=== PATIENT | female | born 1945 | race Caucasian/White ===

== ENCOUNTER 2019-09-13 10:55 | Outpatient (CLI) | payer MEDICARE, SELFPAY ==
--- NOTE | 2019-09-13 10:59 | ECG_ITS ---
Measurements Intervals [place] Rate: 58 P: 33 KS: 157 QRS: -13 QRSD: 74 T: 13 QT: 380 QTc: 375 Interpretive Statements SINUS BRADYCARDIA BORDERLINE R WAVE PROGRESSION, ANTERIOR LEADS BASELINE ARTIFACT- I, II, AVR, AVL BORDERLINE ECG Electronically Signed On 09-13-2019 11:16:59 FARO DEALER by Alex Gongora D.O.
== END 2019-09-13 10:56 | disposition home or self-care (01) ==
LOC: ANHSURGERY 10:58
PROVIDERS: PCP Internal Medicine; Visit Provider Plastic Surgery
DX: Z01.810 Encounter for preprocedural cardiovascular examination (principal); E78.00 Pure hypercholesterolemia, unspecified; G56.21 Lesion of ulnar nerve, right upper limb
CPT/HCPCS: 93005

== ENCOUNTER 2019-09-20 00:45 | Day surgery (SDC) | payer MEDICARE, SELFPAY ==
[2019-09-11 09:28] VITALS: BMI 31.4
--- NOTE | 2019-09-19 21:30 | HP_ITS ---
DATE OF SERVICE: 09/20/2019 DIAGNOSIS: Right cubital tunnel syndrome. HISTORY: The patient is 74. She presents with complaints in her right upper extremity. She has a history of having had right open carpal tunnel release in 2019. Her complaints were numbness and weakness in the right hand. She had done well for a good period of time after the carpal tunnel release. We sent her for a new nerve conduction test and this revealed mild right carpal tunnel syndrome and subtle evolving right ulnar neuropathy at the elbow. That latter exam was consistent with her symptoms and she is brought today for ulnar neuroplasty at the right elbow. She is aware that condition is unlikely to be helped if she does not have the surgery. The risks involved primarily involved up infection, hematoma, persistence of premorbid sensory and motor condition and anesthetic risk. She would like to proceed. She is advised that cutaneous nerve damage may cause some numbness on the proximal forearm. PAST MEDICAL HISTORY: She takes a low-dose aspirin daily, Crestor, VESIcare, calcium and vitamin D3. ALLERGIES: SHE HAS NO KNOWN ALLERGIES TO MEDICATION. PAST SURGICAL HISTORY: She has had several surgeries. REVIEW OF SYSTEMS: Indicates some hearing loss, dry eye, arthritic pain. FAMILY HISTORY: Noncontributory. SOCIAL HISTORY: She lives in [place]. She is not employed. She is a nonsmoker. PHYSICAL EXAMINATION: GENERAL: She is alert, cooperative, adult female. She is 5 feet 5 inches, weighs 162 pounds. She is in no distress. HEENT: Exam is unremarkable. CHEST: Clear to auscultation. HEART: Regular rate and rhythm by palpation. ABDOMEN: Soft, nontender. DIAGNOSIS: Right cubital tunnel syndrome. PLAN: Right ulnar neuroplasty at the elbow. This will be under MAC anesthetic. She will remain on her aspirin. D I MT: Julia
--- NOTE | 2019-09-20 07:22 | WPDHPUPDATE1 ---
History and Physical Update Update Date/Time: 09/20/19 07:22 History and Physical has been reviewed, including an updated exam of the patient. There are NO changes in the patient's condition. Risks, benefits, and alternatives have been discussed and questions answered. Patient agrees to proceed with procedure.
--- NOTE | 2019-09-20 07:23 | WPDHPUPDATE1 ---
History and Physical Update Update Date/Time: 09/20/19 07:23 History and Physical has been reviewed, including an updated exam of the patient. There are NO changes in the patient's condition. Risks, benefits, and alternatives have been discussed and questions answered. Patient agrees to proceed with procedure.
[2019-09-20] MEDS: LACTATED RINGERS 1,000 ML 30 ML IV CONT (11:00)
--- NOTE | 2019-09-20 11:38 | WPDANESEPPF ---
Anes - Initial Pre Proc Eval Procedure: Operation Date: 09/20/19 12:00 Proposed Procedures p Right Ulnar Neuroplasty at the Elbow - Sergey Fowler MD Date/Time: 09/20/19 11:38 Surgeon: Sergey Fowler MD Pre Op Diagnosis: Lesion of Right Ulnar Nerve Patient Data Age: 74 Gender: F Height: 5 ft 4.5 in Weight: 84.37 kg Allergies Allergy/AdvReac Type Severity Reaction Status Date / Time No Known Allergies Allergy Unknown Verified 09/11/19 09:24 Home Medications Medication Instructions Recorded Confirmed Type aspirin 81 mg tablet,delayed 81 mg PO DAILY 08/01/19 09/11/19 History release cholecalciferol (vitamin D3) 50 2,000 unit PO DAILY 08/01/19 09/11/19 History mcg (2,000 unit) tablet docusate sodium 100 mg tablet 100 mg PO DAILY 08/01/19 09/11/19 History vitamins A,C,Y-xmly-rmywss 14,320 1 cap PO BID 08/01/19 09/11/19 History unit-226 mg-200 unit capsule calcium carbonate-vitamin D3 1 cap PO DAILY 09/11/19 09/11/19 History [Calcium 600 + D(3)] multivitamin [Daily Multiple] 1 tablet PO DAILY 09/11/19 09/11/19 History rosuvastatin 5 mg PO HS 09/11/19 09/11/19 History solifenacin [Vesicare] 10 mg PO HS 09/11/19 09/11/19 History Patient hx anesthesia problems: none Family hx anesthesia problems: none PMFSH Past Medical History Medical History Dyslipidemia GERD with apnea ABIODUN (obstructive sleep apnea) Family History Family History (Updated 12/06/17 @ 07:49 by DOCTOR UNKNOWN) Mother Family history of dementia Father Family history of heart disease in male family member before age 55 Family history of cardiovascular disease, Onset Age: 68 Grandparent Diabetes mellitus Sibling Hypertension Patient's brother is in good health Social History Social History Smoking status: Former smoker Smoking end date: 08/15/84 Alcohol intake: current Gender identity (if verbalized by the patient): Female Anes - Eval Final PreProcedure Day of Procedure 09/20/19 11:38 Patient weight: overweight Heart: regular rate and rhythm Lungs: clear to auscultation Airway: Mallampati scale class II Neurological: alert and oriented Last oral intake: >/= 8 hours ASA classification: III Emergent: no Anesthetic plan: proceed Anesthesia type and monitoring: general GIVS and standard monitoring Informed Consent: The patient's anesthetic plan and its attendant risks and benefits were discussed with the patient/family/POA. Questions were solicited and answers provided to the satisfaction of the patient/family/POA.
--- NOTE | 2019-09-20 11:39 | SUR.PREOP ---
1055- Informed pt that Dr Fowler is running 30 mins behind
[2019-09-20] MEDS: LIDO 1%/EPINEPHRINE 1:100,000 20 ML VIAL INFILTRATE (12:50)
--- NOTE | 2019-09-20 13:05 | PM.OP ---
Procedure Note - Brief Procedure Note - Brief Date of procedure: 09/20/19 Pre-op diagnosis: Lesion of Right Ulnar Nerve Post-op diagnosis: same Procedure performed: R ulnar neuroplasty at the elbow. Anesthesia: MAC Surgeon: Sergey Fowler MD Industrial Real Estate Agent: Katerina Estimated blood loss (mL): 2 Drains: No Packing: No Pathology: none sent Complications: No immediate complications Condition: stable Disposition: PACU
[2019-09-20 13:21] VITALS: BP 112/69; PULSE 70; RESP 13; O2SAT 92
--- NOTE | 2019-09-20 13:25 | P.OP_ITS ---
Procedure Note - Detailed Date of procedure: 09/20/19 Pre-op diagnosis: Lesion of Right Ulnar Nerve Right ulnar compression neuropathy at the elbow Procedure performed: Right ulnar neuroplasty at the elbow Description of procedure: The time-out was held and confirmed. The extremity was prepped and draped in the usual fashion she was given IV sedation. The tourniquet was inflated to 250 mmHg. The elbow was flexed and supported on folded towels. The site was marked for the incision and locally infiltrated with 1% lidocaine. The incision was made as marked. Dissection was carried through the subcutaneous tissue using sharp and blunt technique. Several small vessels were cauterized. The ulnar nerve was identified just anterior to the robust triceps muscle proximal to the medial epicondyle. The nerve was followed distally unroofing any structure lying over it. Tomlinson ligament appeared to be the most constricting points. There was no compression in the distal muscle fascia. And no compression p roximally. Again small vessels were cauterized. The nerve did not sublux and was not transposed. The wound was closed with interrupted and running 3-0 Monocryl sutures. The usual bulky bandage was applied the tourniquet was released. The patient was awakened and transported to the recovery room in stable condition. She has a prescription for hydrocodone 5/325. She has instructions in wound care and follow-up Surgeon: Sergey Fowler MD
[2019-09-20 13:50] VITALS: BP 133/74; PULSE 62
[2019-09-20 14:20] VITALS: BP 130/69; PULSE 53
[2019-09-20 14:50] VITALS: BP 137/69; PULSE 58
== END 2019-09-20 14:58 | disposition home or self-care (01) ==
PROVIDERS: PCP Internal Medicine; Visit Provider Plastic Surgery
PROC: (CPT 64718; principal; 2019-09-20 12:00)
DX: G56.21 Lesion of ulnar nerve, right upper limb (principal); E78.5 Hyperlipidemia, unspecified; K21.9 Gastro-esophageal reflux disease without esophagitis; G47.33 Obstructive sleep apnea (adult) (pediatric); Z79.82 Long term (current) use of aspirin; Z87.891 Personal history of nicotine dependence
CPT/HCPCS: 64718; A9270; J2250; J2704; J3010; J7120

== ENCOUNTER 2020-08-25 09:42 | Outpatient (CLI) | payer MEDICARE, SELFPAY ==
[2020-08-25 10:28] LABS: Basophils Absolute Auto 0.1 K/mm3 (0.0-0.1); Basophils Percent Auto 0.8 % (0.2-1.2); Eosinophils Absolute Auto 0.2 K/mm3 (0-0.3); Eosinophils Percent Auto 2.9 % (0-4.4); Hematocrit 45.2 % (37.0-47.0); Hemoglobin 14.6 g/dL (12.0-15.0); Immature Granulocyte Absolute 0.03 K/mm3 (0.00-0.031); Immature Granulocyte Percent A 0.4 % (0-0.5); Lymphocytes Absolute Auto 2.21 K/mm3 (0.9-3.2); Lymphocytes Percent Auto 27.9 % (18.3-44.2); Mean Corpuscular HGB Conc 32.3 g/dl (32-36); Mean Corpuscular Hemoglobin 32.1 pg (26-34); Mean Corpuscular Volume 99.3 fl (80-100); Mean Platelet Volume 9.6 fl (7.4-10.4); Monocytes Absolute Auto 0.5 K/mm3 (0.1-0.6); Monocytes Percent Auto 6.8 % (2.6-8.5); Neutrophils Absolute Auto 4.8 K/mm3 (1.3-6.7); Neutrophils Percent Auto 61.2 % (45.5-73.1); Platelet Count Result 314 k/mm3 (150-375); Red Blood Count 4.55 M/mm3 (4.2-5.4); White Blood Count 7.9 K/mm3 (4.5-10.0)
[2020-08-25 10:35] LABS: Add Urine Microscopic? YES; Appearance Urine Cloudy (Clear); Bilirubin Urine Negative (Negative); Blood Urine Negative (Negative); Color Urine Yellow (Yellow); Glucose Urine UA Negative (Negative); Ketones Urine Negative (Negative); Leukocyte Esterase Ur 1+ LEU/UL (NEGATIVE); Mucus Urine Rare /lpf; Nitrate Urine Negative (Negative); Protein Urine Negative (Negative); Specific Grav Ur 1.012 (1.001-1.035); Squamous Epithelial Cell Urine Many /hpf (Few); Urobilinogen Urine Negative mg/dL (<2.0)
[2020-08-25 10:44] LABS: Alanine Aminotransferase 27 U/L (4-35); Albumin Level 3.9 g/dL (3.5-5.1); Alkaline Phosphatase 73 U/L (38-126); Anion Gap 4 mmol/L (8-16); Aspartate Amino Transferase 24 U/L (14-36); Bilirubin,Total 0.4 mg/dL (0.2-1.3); Blood Urea Nitrogen 11 mg/dL (7-17); Calcium 8.7 mg/dL (8.4-10.2); Carbon Dioxide 30 mmol/L (22-30); Chloride 109 mmol/L (98-107); Cholesterol 144 mg/dL (0-200); Estimated Glomerular Filt Rate > 60; Glucose 105 mg/dL (65-105); HDL Direct 34 mg/dL; Potassium 4.3 mmol/L (3.4-5.0); Sodium 143 mmol/L (137-145); Triglycerides 293 mg/dL (<150)
[2020-08-25 10:55] LABS: LDL Cholesterol Direct 67 mg/dL
[2020-08-25 11:42] LABS: Vitamin D 25 Hydroxy 30.8 ng/mL
== END 2020-08-25 09:43 | disposition home or self-care (01) ==
PROVIDERS: PCP Internal Medicine; Visit Provider Internal Medicine
DX: E55.9 Vitamin D deficiency, unspecified (principal); E78.2 Mixed hyperlipidemia; R73.01 Impaired fasting glucose; Z79.899 Other long term (current) drug therapy
CPT/HCPCS: 36415; 80053; 80061; 81001; 82306; 84443; 85025

== ENCOUNTER 2020-09-16 07:50 | Outpatient (CLI) | payer MEDICARE, SELFPAY ==
--- NOTE | ~2020-09-16 | MM_ITS ---
EXAMINATION: MM screening [facility] BI w emelia HISTORY: Screening mammogram TECHNIQUE: Craniocaudal and mediolateral oblique 3-D tomosynthesis images were obtained and synthetic 2-D images were generated. CAD analysis was submitted and interpreted. COMPARISON: 09/05/2019, 10/04/2017, 10/06/2016, 10/03/2015 BREAST PARENCHYMAL COMPOSITION: There are scattered areas of fibroglandular density. FINDINGS: There is no evidence of suspicious mass, calcification, or architectural distortion to sugg est malignancy in either breast. There has been no suspicious interval change. IMPRESSION: 1. No mammographic evidence of malignancy. 2. Recommend routine screening mammography in one year. BI-RADS Category 1: Negative Reviewed, dictated and finalized at location A. SCALA DEVELOPER
== END 2020-09-16 07:51 | disposition home or self-care (01) ==
LOC: ANHIMG 07:54
PROVIDERS: PCP Internal Medicine; Visit Provider Internal Medicine
DX: Z12.31 Encounter for screening mammogram for malignant neoplasm of breast (principal)
CPT/HCPCS: 77063; 77067

== ENCOUNTER 2021-09-04 07:33 | Outpatient (CLI) | payer MEDICARE, SELFPAY ==
[2021-09-04 08:42] LABS: Basophils Absolute Auto 0.1 K/mm3 (0.0-0.1); Basophils Percent Auto 0.8 % (0.2-1.2); Eosinophils Absolute Auto 0.3 K/mm3 (0-0.3); Hemoglobin 14.7 g/dL (12.0-15.0); Immature Granulocyte Absolute 0.04 K/mm3 (0.00-0.031); Immature Granulocyte Percent A 0.5 % (0-0.5); Lymphocytes Absolute Auto 2.87 K/mm3 (0.9-3.2); Lymphocytes Percent Auto 34.5 % (18.3-44.2); Mean Corpuscular HGB Conc 32.7 g/dl (32-36); Mean Corpuscular Hemoglobin 32.5 pg (26-34); Mean Corpuscular Volume 99.3 fl (80-100); Mean Platelet Volume 9.8 fl (7.4-10.4); Monocytes Absolute Auto 0.8 K/mm3 (0.1-0.6); Monocytes Percent Auto 9.5 % (2.6-8.5); Neutrophils Absolute Auto 4.2 K/mm3 (1.3-6.7); Neutrophils Percent Auto 50.7 % (45.5-73.1); Platelet Count Result 309 k/mm3 (150-375); Red Blood Count 4.53 M/mm3 (4.2-5.4); Red Cell Distribution Width 14.1 % (11.5-14.5); White Blood Count 8.3 K/mm3 (4.5-10.0)
[2021-09-04 08:56] LABS: Alanine Aminotransferase 27 U/L (4-35); Albumin Level 4.2 g/dL (3.5-5.1); Alkaline Phosphatase 91 U/L (38-126); Anion Gap 9 mmol/L (8-16); Aspartate Amino Transferase 27 U/L (14-36); Bilirubin,Total 0.4 mg/dL (0.2-1.3); Blood Urea Nitrogen 20 mg/dL (7-17); Calcium 9.3 mg/dL (8.4-10.2); Carbon Dioxide 29 mmol/L (22-30); Chloride 104 mmol/L (98-107); Cholesterol 149 mg/dL (0-200); Estimated Glomerular Filt Rate > 60; Glucose 115 mg/dL (65-110); HDL Direct 38 mg/dL; Sodium 142 mmol/L (137-145); Triglycerides 217 mg/dL (<150)
[2021-09-04 09:02] LABS: Creatinine Urine 148.2 mg/dL
[2021-09-04 09:06] LABS: MALB Creatinine Ratio 7.7 mg/g (0-30); Microalbumin Urine Random 11.4 mg/L (0-16.7)
[2021-09-04 09:07] LABS: LDL Cholesterol Direct 71 mg/dL
[2021-09-04 09:30] LABS: Vitamin D 25 Hydroxy 34.8 ng/mL
== END 2021-09-04 07:34 | disposition home or self-care (01) ==
PROVIDERS: PCP Internal Medicine; Visit Provider Internal Medicine
DX: E55.9 Vitamin D deficiency, unspecified (principal); E78.2 Mixed hyperlipidemia; R73.01 Impaired fasting glucose; Z78.0 Asymptomatic menopausal state; Z79.899 Other long term (current) drug therapy
CPT/HCPCS: 36415; 80053; 80061; 82043; 82306; 83036; 84443; 85025

== ENCOUNTER 2021-09-24 15:50 | Outpatient (CLI) | payer MEDICARE, SELFPAY ==
--- NOTE | ~2021-09-24 | MM_ITS ---
EXAMINATION: MM screening [facility] BI w emelia HISTORY: Screening mammogram TECHNIQUE: Craniocaudal and mediolateral oblique 3-D tomosynthesis images were obtained and synthetic 2-D images were generated. CAD analysis was submitted and interpreted. COMPARISON: 09/16/2020, 09/05/2019, 09/17/2017 BREAST PARENCHYMAL COMPOSITION: There are scattered areas of fibroglandular density. FINDINGS: There is no evidence of suspicious mass, calcification, or architectural distortion to sugg est malignancy in either breast. There has been no suspicious interval change. IMPRESSION: 1. No mammographic evidence of malignancy. 2. Recommend routine screening mammography in one year. BI-RADS Category 1: Negative Reviewed, dictated and finalized at location A. GENCY MAN
== END 2021-09-24 15:51 | disposition home or self-care (01) ==
LOC: ANHIMG 15:51
PROVIDERS: PCP Internal Medicine; Visit Provider Internal Medicine
DX: Z12.31 Encounter for screening mammogram for malignant neoplasm of breast (principal)
CPT/HCPCS: 77063; 77067

== ENCOUNTER 2021-11-25 14:41 | Outpatient (CLI) | payer MEDICARE, SELFPAY ==
--- NOTE | ~2021-11-25 | DEXA_ITS ---
Bone Density Report Name: JOSHUA NEWBERRY Age: 76 Sex: Female Ethnicity: White Date of : 1945 Indication: postmenopausal; screening for osteoporosis; height loss; Referring Provider: BROCK SERRATO Study: Bone densitometry was performed. Exam Date: November 25, 2021 Accession number: [id number] Bone Density: Region BMD T-score Z-score Classification AP Spine(L1-L4) 1.045 0.0 2.3 Normal Femoral Neck (Left) 0.723 -1.1 0.9 Osteopenia Total Hip (Left) 0.942 0.0 1.7 Normal World Health Organization criteria for BMD impression classify patients as: Normal (T-score at or above -1.0), Osteopenia (T-score between -1.0 and -2.5), or Osteoporosis (T-score at or below -2.5). 10-year Fracture Risk(1): Major Osteoporotic Fracture 8.9% Hip Fracture 1.3% Reported Risk Factors: [place] (), Neck BMD=0.723, BMI=38.0 (1) FRAX(R) Version 3.08. Fracture probability calculated for an untreated patient. Fracture probability may be lower if the patient has received treatment. Previous Exams: Region Exam Age BMD T-score BMD Change BMD Change Date g/cm2 vs Baseline vs Previous AP Spine(L1-L4) 11/25/2021 76 1.045 0.0 0.028(2.7%)* 0.028(2.7%)* 09/24/2014 69 1.017 -0.3 Total Hip(Left) 11/25/2021 76 0.942 0.0 -0.060(-6.0%)* -0.018(-1.9%) 02/06/2019 73 0.960 0.1 -0.042(-4.2%)* -0.042(-4.2%)* 09/24/2014 69 1.002 0.5 *Denotes significance at 95% confidence level, LSC for AP Spine = 0.022 g/cm2, LSC for Total Hip = 0.027 g/cm2 Clinical Information Provided by Patient: Has used the following medications: Vitamin D, Calcium Patient maximum height was 67 Menopause Age: 58 No regular weight bearing exercise Does not regularly consume dairy products Drinks caffeinated beverages Onset of menses at age 14 Number of children 1 Impression: The patient has low bone mass, based on the Left Femoral Neck T-score. The patient has an estimated ten-year risk of hip fracture of 1.3% and an estimated ten-year risk of major fracture of 8.9%, based on the WHO FRAX algorithm. No significant bone loss was observed. Discussion: BONE DENSITY IS LOW AT ONE OR MORE SKELETAL SITES. This patient's lowest T-score is low at one or more skeletal sites. It meets the World Health Organization's (WHO) criteria for ?low bone mass? (T-score between -1.0 and -2.5). The patient's 10-year risk of fracture as calculated by FRAX is less than the threshold where pharmacological therapy is recommended by the National Osteoporosis Fou
== END 2021-11-25 14:42 | disposition home or self-care (01) ==
LOC: ANHIMG 14:43
PROVIDERS: PCP Internal Medicine; Visit Provider Internal Medicine
DX: Z78.0 Asymptomatic menopausal state (principal); M85.852 Other specified disorders of bone density and structure, left thigh
CPT/HCPCS: 77080

== ENCOUNTER → 2021-12-02 09:23 | Outpatient (CLI) | payer MEDICARE, SELFPAY ==
--- NOTE | ~2021-12-02 | MR_ITS ---
EXAMINATION: MR shoulder RT wo con DATE: 12/02/2021 10:18 INDICATION: Right shoulder pain TECHNIQUE: Magnetic resonance imaging (MRI) of the right shoulder was performed without intravenous c ontrast. Sequences included axial PD-weighted FS FSE, coronal oblique PD-weighted FS FSE, coronal obl ique T2-weighted FS FSE, sagittal PD-weighted FS FSE, and sagittal T1-weighted SE. COMPARISON: Right shoulder radiographs dated 10/29/2021 FINDINGS: Coracoacromial arch: The acromion undersurface is curved in morphology (type II). The coracoacromial ligament is normal. M ild acromioclavicular osteoarthritis. Rotator cuff: Severe supraspinatus and mild infraspinatus tendinopathy without discrete tear. The teres minor and s ubscapularis tendons are normal. Normal rotator cuff muscle bulk and signal. Biceps tendon, glenoid labrum and glenohumeral cartilage: Long head of the biceps tendon is normal. There is a SLAP tear of the superior glenoid labrum which b egins posteriorly at the 9:00 position and extends anteriorly to the 2:00 position. Partial-thickness cartilage loss along the cephalad half of the glenoid with smooth chondral surface and without degen erative subchondral changes. Additional partial thickness cartilage loss at the posterior superior as pect of the humeral head. Fluid: Small amount of fluid in the long head biceps tendon sheath disproportionate to the physiologic amoun t of fluid in the glenohumeral joint consistent with mild bicipital tenosynovitis. No loose osteochon dral bodies. Large amount of fluid in the subacromial/subdeltoid bursa consistent with bursitis. Bones: Normal marrow signal with no fracture or pathologic marrow replacing process. Mild cystic change at t he greater tuberosity. IMPRESSION: 1. Severe supraspinatus and mild infraspinatus tendinopathy without discrete tear. 2. Mild glenohumeral osteoarthritis with SLAP tear of the superior glenoid labrum. 3. Moderate subacromial/subdeltoid bursitis. Reviewed, dictated and finalized at location A. IMPRESSION: 1. Severe supraspinatus and mild infraspinatus tendinopathy without discrete te ar. 2. Mild glenohumeral osteoarthritis with SLAP tear of the superior glenoid labr um. 3. Moderate subacromial/subdeltoid bursitis.
== END ==
PROVIDERS: PCP Internal Medicine; Visit Provider Orthopaedic Surgery
DX: M19.011 Primary osteoarthritis, right shoulder (principal); M75.51 Bursitis of right shoulder
CPT/HCPCS: 73221

== ENCOUNTER 2022-01-12 09:21 | Outpatient (CLI) | payer MEDICARE, SELFPAY ==
--- NOTE | 2022-01-12 09:37 | ECG_ITS ---
Measurements Intervals [place] Rate: 84 P: 47 [place]: 151 QRS: 6 QRSD: 76 T: 27 QT: 364 QTc: 431 Interpretive Statements SINUS RHYTHM BASELINE ARTIFACT- AVF NORMAL ECG Electronically Signed On 01-12-2022 14:11:25 CDT by Alex Gongora D.O.
== END 2022-01-12 09:22 | disposition home or self-care (01) ==
PROVIDERS: PCP Internal Medicine; Visit Provider Orthopaedic Surgery
DX: E78.00 Pure hypercholesterolemia, unspecified (principal); Z01.818 Encounter for other preprocedural examination
CPT/HCPCS: 93005

== ENCOUNTER 2022-01-15 07:46 | Outpatient (CLI) | payer MEDICARE, SELFPAY ==
--- NOTE | 2022-02-08 17:06 | WPDSLEEPSTUD ---
Sleep Study Date of Study: 01/15/22 Ordering Provider: Milton Chan APRN Interpreting Physician: Alma Patrick MD Sleep Study Type: Polysomnogram Height: 1.65 m Weight: 104.326 kg Body Mass Index: 38.2 Neck Circumference (inches): 15.4 [place]: 15 Reason for Sleep Study Hypersomnolence Sleep History Enriqueta Rosa is a 76-year-old female who frequently wakes at night with difficulty returning to sleep. She has been treated for sleep apnea since 2013 using CPAP until the recall. She became uncertain if she should continue using her machine or stop using her machine. This is the original machine that she was treated with so it is over 5 years old. She falls asleep easily while reading or watching TV. She occasionally awakens from sleep feeling short of breath, occasionally awakens at night with heartburn, belching or coughing. She frequently snores and this is frequently loud enough that other people complain about it. She occasionally has trouble sleeping with a cold. She does not wake up gasping for breath during the night. She occasionally has breathing problems at night. She rarely sweats excessively at night and rarely notices her heart pounding or beating irregularly at night. She frequently falls asleep during the day, frequently falls asleep involuntarily however never falls asleep while driving. She does not have loss of muscle tone with strong emotion. She does not have daytime difficulties due to excessive sleepiness. She is retired. She does not feel paralyzed on waking or falling asleep. She does not have vivid dreamlike scenes upon awakening or falling asleep. She does not feel afraid to go to sleep. She denies having nightmares. She occasionally remembers her dreams. She occasionally has racing thoughts. She does not feel sad, depressed or anxious. She does not have muscular tension. She rarely notices parts of her body jerking and she rarely kicks at night. She occasionally has crawling and aching feelings in her legs. She occasionally has leg pain at night. She does not have morning jaw pain. She does not grind her teeth during sleep. She does not have pain during the day or is awakened by pain during the night. She occasionally wakes up feeling stiff in the morning with sore achy muscles and pain in the neck and spine. She has fatigue. Normal bedtime is between 11:30 p.m. and 12 midnight, falling asleep within 30-40 minutes, waking 1-2 times during the night to go to the bathroom or get a drink of water. She is able to return to sleep within 5-10 minutes. She wakes up between 8:00 a.m. and 8:30 a.m.. She estimates getting 5-6 hours of sleep at night. Her weekend schedule is the same. She takes naps in the afternoon or evening. A short nap is not refreshing. She awakens feeling refreshed only occasionally. She reports a 30 lb weight gain in the last year Habits: Stop tobacco 37 years ago. Caffeine 2 servings a day. No alcohol or recreational drugs. [facility] Past Medical History Medical History Arthritis Dyslipidemia Gastroesophageal reflux disease Hypertension Obstructive sleep apnea Urge incontinence Surgical History Surgical History History of arthroplasty of right shoulder History of carpal tunnel release History of tonsillectomy History of total right hip arthroplasty Family History Family History Mother Family history of dementia Father Family history of heart disease in male family member before age 55 Family history of cardiovascular disease, Onset Age: 68 Grandparent Diabetes mellitus Sibling Hypertension Patient's brother is in good health Social History Social History Social History: Surrogate decision maker: Laurasandy Joyner, daughter. Code
[2022-02-09 19:21] VITALS: BMI 38.2
== END 2022-01-16 06:56 | disposition home or self-care (01) ==
LOC: ANHCSM 07:47
PROVIDERS: PCP Internal Medicine; Visit Provider Nurse Practitioner Family
DX: G47.33 Obstructive sleep apnea (adult) (pediatric) (principal)
CPT/HCPCS: 95810

== ENCOUNTER 2022-01-20 18:35 | Observation (INO) | payer MEDICARE, SELFPAY ==
[2022-01-06 13:44] VITALS: BMI 38.3
--- NOTE | 2022-01-06 13:55 | PC.NURSE ---
Report to the Outpatient Waiting Room, entrance under the green pavilion located off [facility], at time _1130 AM_ on date _01/19/22_. OR Time: _1:30 PM_. - You and your visitor will be asked a series of questions to screen for COVID 19 for your protection. - Only one visitor is allowed at this time. - The patient visitor is requested to leave or wait in car when not with patient. - A mask is required within the hospital. Patients may have clear liquids (water, carbonated beverages, clear teas, apple juice) until 3 hours prior to surgery (1030 AM) with a maximum of 20 ounces. - No food from midnight until time of surgery Take the following medications with a SIP of water the morning of surgery: _NONE_ Medications to discontinue per DR. CLINTON - ASPIRIN 7 DAYS PRIOR TO SURGERY, Date to take last dose 01/11/22__ Medications to discontinue per ANESTHESIA - ALL VITAMINS/SUPPLEMENTS 3 DAYS PRIOR TO SURGERY, Date to take last dose 01/15/22_ Please no make-up, nail albanian, hairspray, perfume, deodorant, or body powder the day of surgery. No jewelry (including any body piercings) or valuables the day of surgery, leave them at home. Please take a shower or bath the night before, or the morning of, surgery with an antibacterial soap. Wear comfortable, loose fitting clothing. - Jewelry must be removed prior to entering the operating room. Rings and piercings that are not removed may be cut off. - The hospital will not accept responsibility for valuables. - Please leave all valuables, including medications, at home the day of surgery. If you are going home after surgery, a licensed compactor driver must drive you home. - NO public transportation without another adult. - We recommend that an adult stay with you for 24 hours following discharge. - We also recommend that you do not drive, make important decision, drink alcoholic beverages, or take any drugs that were not prescribed by your health care provider for at least 24 hours after your discharge time. Follow any additional instructions given to you from your surgeon. If you or anyone in your household have experienced Covid symptoms in the past week, please notify your surgeon or the nurse liaison at the phone number below for possible testing. Telephone instructions given to ____PT and asked if any additional questions and then verbalized understanding. Patient advised to call surgeon office or pre surgery nurse liaison [phone] if any additional questions.
[2022-01-19] VITALS (24 sets, daily range): BP systolic 125–181; BP diastolic 58–84; PULSE 68–92; RESP 14–22; TEMP 36.1–36.3; O2SAT 77–98; BMI 37.3
--- NOTE | 2022-01-19 07:18 | WPDHPUPDATE1 ---
History and Physical Update Update Date/Time: 01/19/22 07:18 History and Physical has been reviewed, including an updated exam of the patient. There are NO changes in the patient's condition. Risks, benefits, and alternatives have been discussed and questions answered. Patient agrees to proceed with procedure.
--- NOTE | 2022-01-19 11:45 | WPDANESEPPF ---
Anes - Initial Pre Proc Eval Procedure: Operation Date: 01/19/22 13:30 Proposed Procedures p Right Shoulder Arthroscopic Subacromial Decompression, Bicep Tenotomy - Virgilio Jacobson MD Date/Time: 01/19/22 11:45 Surgeon: Virgilio Jacobson MD Pre Op Diagnosis: right shoulder tendonitis, SLAP tear Patient Data Age: 76 Gender: F Height: 1.65 m Weight: 104.54 kg Allergies Allergy/AdvReac Type Severity Reaction Status Date / Time No Known Allergies Allergy Unknown Verified 01/19/22 11:40 Home Medications Medication Instructions Recorded Confirmed Type aspirin 81 mg tablet,delayed 81 mg PO HS 08/01/19 01/19/22 History release (Adult Low Dose Aspirin) cholecalciferol (vitamin D3) 50 2,000 unit PO QAM 08/01/19 01/19/22 History mcg (2,000 unit) tablet docusate sodium 100 mg tablet 100 mg PO DAILY PRN Constipation 08/01/19 01/19/22 History (Stool Softener) vitamins A,C,J-krpm-kxpnvh 14,320 1 cap PO BID 08/01/19 01/19/22 History unit-226 mg-200 unit capsule (PreserVision AREDS) calcium carbonate 600 mg-vitamin 1 cap PO QAM 09/11/19 01/19/22 History D3 5 mcg (200 unit) capsule (Calcium 600 + D(3)) multivitamin (Daily Multiple 1 tablet PO HS 09/11/19 01/19/22 History tablet) cetirizine 10 mg tablet (Zyrtec) 10 mg PO DAILY PRN Congestion 01/06/22 01/19/22 History rosuvastatin 10 mg tablet 10 mg PO HS 01/06/22 01/19/22 History solifenacin 10 mg tablet (Vesicare) 10 mg HS 01/06/22 01/19/22 History Patient hx anesthesia problems: none Family hx anesthesia problems: none Results Review: All pre-operative results and documents have been reviewed as part of the pre-operative evaluation. [facility] Past Medical History Medical History (Updated 01/19/22 @ 11:46 by Rex Hamilton MD) Dyslipidemia GERD with apnea Obesity (BMI 35.0-39.9 without comorbidity) ABIODUN (obstructive sleep apnea) Sinus congestion Family History Family History Mother Family history of dementia Father Family history of heart disease in male family member before age 55 Family history of cardiovascular disease, Onset Age: 68 Grandparent Diabetes mellitus Sibling Hypertension Patient's brother is in good health Social History Social History Smoking packs per day: 2 Smoking cigarettes per day: 40.0 Years smoked: 20 Smoking pack-years: 40.00 Smoking status: Former smoker Tobacco type: cigarettes Second hand tobacco smoke exposure: No Smoking end date: 08/15/84 Alcohol intake: current Drinks per week: 1 Alcohol use details: social Substance use: never Substance use type: does not use Living arrangements: alone Gender identity (if verbalized by the patient): Female Spiritual care concerns: No Anes - Eval Final PreProcedure Day of Procedure 01/19/22 11:45 Patient weight: obese Heart: regular rate and rhythm Lungs: clear to auscultation Airway: Mallampati scale class II Neurological: alert and oriented Last oral intake: >/= 8 hours ASA classification: III Emergent: no Anesthetic plan: proceed Anesthesia type and monitoring: general ETT and standard monitoring Results Review: All pre-operative results and documents have been reviewed as part of the pre-operative evaluation. Informed Consent: The patient's anesthetic plan and its attendant risks and benefits were discussed with the patient/family/POA. Questions were solicited and answers provided to the satisfaction of the patient/family/POA.
[2022-01-19] MEDS: ACETAMINOPHEN 500 MG TABLET 1000 MG PO (11:47)
[2022-01-19] MEDS: LACTATED RINGERS 1,000 ML 30 ML IV CONT ×2 (12:21→15:03)
--- NOTE | 2022-01-19 12:26 | WPDANESPNB ---
Anes - Peripheral Nerve Block Date/Time: 01/19/22 12:26 I have discussed with the patient/family/POA the placement of a peripheral nerve block for post-operative pain management, including associated risks, benefits, complications, and side effects. Alternative methods of post-operative analgesia were detailed. Questions were solicited and answers provided to the satisfaction of the patient/family/POA. Time-Out: A pre-procedural Time-Out was completed immediately before starting the procedure and confirmed: Patient Identification, Site, Procedure, Patient Position and the Availability of Requisite Equipment. Clinical Indications: Acute post-operative pain management requested by the operative surgeon. Nerve Block Insertion Note Anes-nerve block: supraclavicular right Patient position: supine Skin prep: chlorhexidine Needle: 22 gauge, stimulating, insulated echogenic needle. Needle length: 80 mm Technique: ultrasound (in plane) Injectate: bupivacaine 0.5% with epi 5 mcg/ml (20cc) Observations: tolerated well Complications: none Procedure start time:: 1300 Procedure end time:: 1305
[2022-01-19] MEDS: KETOROLAC 15 MG/ML VIAL (*BKC) IV PUSH (12:34)
[2022-01-19] MEDS: ceFAZolin 2 GM/D5W 50 ML 2 GM/50 ML BAG IVPB (13:31)
--- NOTE | 2022-01-19 15:23 | SUR.PHASEI ---
1503- Patient s/p block with increased work of breathing upon arrival to recovery room with simple face mask in place 8 liters of oxygen and maintaining saturations in 90's. 1523- Patient awake and continues having increased work of breathing. Lung sounds auscultated and expiratory wheezing noted. Call to Dr. Hamilton to make him aware and received orders for albuterol treatment. Dr. Hamilton to bedside and notified patient that breathing will improve s/p block. Per Dr. Hamilton continue monitoring patient and place orders for albuterol treatment. Will call respiratory therapist for albuterol treatment.
[2022-01-19] MEDS: ALBUTEROL SULFATE NEB 2.5 MG/3 ML INH INHALATION (15:38)
[2022-01-19] MEDS: fentaNYL CITRATE INJ (*CRX) 100 MCG/2 ML VIAL 25 MCG IV PUSH ×2 (15:43→16:13)
--- NOTE | 2022-01-19 17:41 | W.PM.PROC2 ---
Procedure Note - Detailed Date of Procedure 01/19/22 Pre-op Diagnosis Right shoulder tendonitis, SLAP tear Post-op Diagnosis Other (1. Right shoulder rotator cuff tendonitis 2. Subacromial impingement 3. Biceps tendinosis 4. Degenerative SLAP tear 5. Degenerative arthritis ) Procedure Performed Right shoulder 1. Arthroscopic labral debridement with chondroplasty and biceps tenotomy 2. Arthroscopic subacromial decompression Surgeon Virgilio Jacobson MD Industrial Relations Manager Juanita Arambula PA-C Anesthesia General and Regional ( interscalene block) Findings Moderate degenerative arthritis and degenerative superior labral tear. Minimal low-grade supraspinatus degenerative fraying. Evidence of subacromial impingement. Significant bursitis. Description of Procedure Preoperative antibiotics were given. An interscalene block was administered in the preoperative area. The patient was bought brought to the operating room. A general anesthetic was administered. The patient was carefully positioned in the beach chair position. The head and neck were carefully positioned. The non operative extremity was also carefully positioned. The shoulder was prepped and draped in the usual sterile fashion. Examination was performed. Standard posterior and anterior arthroscopic portals were established. Inflow achieved with the arthroscopic pump using saline and epinephrine. The glenohumeral joint was carefully inspected. The degenerative changes were quite significant on both the humerus and glenoid side. Not quite to exposed bone. Mild synovitis. No contracture. Significant superior labral degeneration present. This was debrided, and the biceps was released. The subscapularis appeared normal. The articular cuff show only very low-grade fraying. Attention was turned to the subacromial space. The bursa was quite thickened. There were some thick bursal bands that appeared scarred. There was evidence of subacromial impingement. Slight spurring at the anterior acromion. Cuff itself had a small frayed area but very low-grade tearing overall. A complete bursectomy was performed. The rotator cuff and footprint were lightly debrided. Only low grade partial tearing noted. A modest acromioplasty was performed. The arthroscopic instruments were removed. The wounds were closed with 3-0 Monocryl subcuticular suture and steri strips. There were no complications. A sling was applied and the patient brought to the recovery room. Physician video production assistant, Juanita Arambula PA-C, required for surgery; including patient positioning, draping, arthroscopic camera operation, maintaining instrument position, wound closure, and dressing and sling placement. Pathology None sent Complications No immediate complications Condition Stable Disposition PACU [facility] Billing Surgery - Charge Forward: Surgery Billing
--- NOTE | 2022-01-19 18:34 | SUR.PHASEII ---
1814 - ambulated to bathroom with min. assist. remains on room air. using incentive spirometer.family member in room.
--- NOTE | 2022-01-19 19:41 | SUR.PHASEII ---
193 - pt to be admitted after speaking with Dr Jacobson by phone. placed pt back on O2 @2L.
--- NOTE | 2022-01-19 20:47 | ADMGEN ---
2030 This patient, Saba Rosa, was admitted to 3 [facility] Surg Room 300-01. Patient/family oriented to hospital policies and general routines including ID bracelet, bed and alarms, visiting hours, pain management, procedures, bathroom and other care routines, personal items, smoking policy, room service/diet, and visiting hours. Information on how to activate the Rapid Response Team has been discussed. Patient/Family are encouraged to report perceived risks to care and to ask questions if they do not understand what they are told or what they should do.
[2022-01-19] MEDS: SOLIFENACIN 5 MG TABLET 10 MG PO (22:10)
[2022-01-19] MEDS: ASPIRIN 81 MG ENTERIC TABLET PO (22:10)
[2022-01-19] MEDS: ROSUVASTATIN 10 MG TABLET PO (22:10)
[2022-01-19] MEDS: MULTIVITAMINS THERAPEUTIC TAB (*BKC) 1 TABLET PO (22:10)
[2022-01-20] VITALS (9 sets, daily range): BP systolic 109–179; BP diastolic 54–91; PULSE 77–85; RESP 16–20; TEMP 36.4–36.6; O2SAT 93–98
--- NOTE | ~2022-01-20 | XR_ITS ---
EXAM: XR abdomen/kub 1V DATE: 01/20/2022 19:11 HISTORY: nausea, abdominal distention . COMPARISON: None available. FINDINGS: Lung bases mostly excluded from the [id number]. Multiple loops of dilated small bowel i n the upper mid and left abdomen. No organomegaly. No abnormal abdominal calcification. Severe degene rative changes in the lumbar spine. Right hip arthroplasty. IMPRESSION: Small bowel ileus versus early/partial obstruction. Reviewed, dictated and finalized at location K.
--- NOTE | ~2022-01-20 | XR_ITS ---
XR chest 2V 01/21/2022 13:51 Indication: Cough and hypoxia. Procedure: 2 view chest Comparison: 01/20/2022 and 08/29/2013 Findings: Chronic elevation of the right diaphragm there is right perihilar airspace consolidation. T here is bibasilar airspace disease. No pleural effusion or pneumothorax. Cardiomegaly. No pneumothora x. Impression: 1: Bilateral airspace disease of the lung bases and right perihilar locations which may represent ate lectasis and/or pneumonia. 2: Chronic elevation of the right diaphragm suggesting phrenic nerve paralysis. Reviewed, dictated and finalized at location B. Impression: 1: Bilateral airspace disease of the lung bases and right perihilar locations w hich may represent atelectasis and/or pneumonia. 2: Chronic elevation of the right diaphragm suggesting phrenic nerve paralysis.
--- NOTE | ~2022-01-20 | XR_ITS ---
XR chest 2V 01/20/2022 10:59 Indication: Shortness of breath Procedure: AP and lateral views of the chest Comparison: 08/29/2013 Findings: Cardiomegaly. Elevation of the right diaphragm, suspicious for phrenic nerve paralysis. The re is right basilar atelectasis. Small effusion in the fissure. Impression: 1: Right basilar atelectasis with small right effusion. 2: Cardiomegaly. 3: Elevation of the right diaphragm. Reviewed, dictated and finalized at location B. Impression: 1: Right basilar atelectasis with small right effusion. 2: Cardiomegaly. 3: Elevation of the right diaphragm.
--- NOTE | ~2022-01-20 | XR_ITS ---
EXAMINATION: XR abdomen obstructive series DATE: 01/21/2022 09:54 INDICATION: Ileus. 2 days postop. TECHNIQUE: Supine and upright views of the abdomen. FINDINGS: 01/20/2022 The visualized lung parenchyma is normal.. There is decreased small bowel dilation in the left abdome n.. Gas and stool are seen throughout the colon to the level of the rectum. There is no free air. Th ere is a right hip arthroplasty. Severe lumbar spondylosis with levoscoliosis. IMPRESSION: 1. Improving postoperative ileus. Reviewed, dictated and finalized at location B.
[2022-01-20] MEDS: CHOLECALCIFEROL 1,000 UNITS TABLET 2000 UNITS PO (08:53)
[2022-01-20] MEDS: LORATADINE 10 MG TABLET PO (08:53)
[2022-01-20] MEDS: SENNA/DOCUSATE SODIUM TABLET 2 TAB PO ×2 (08:53→17:31)
[2022-01-20] MEDS: polyethylene glycoL 3350 17 GM POWD.PACK PO (08:53)
[2022-01-20] MEDS: OPTI-GEN TAB 1 TABLET PO ×2 (08:54→17:31)
--- NOTE | 2022-01-20 09:37 | PM.PNORT ---
Progress Note: A&P Assessment and Plan (1) Low O2 saturation: Code(s): R79.81 - Abnormal blood-gas level Status: Acute (2) Status post arthroscopy of right shoulder: Code(s): Z98.890 - Other specified postprocedural states Status: Acute Plan Patient had low oxygen stats after surgery. Likely from block. She was admitted last night. She is on 2L O2 at this time. She denies CP, SOB, or pain. Block is starting to wear off. She is able to move her fingers. Notes numbness in the first 3 fingers. Will consult hospitalist. Subjective Subjective Date/Time Seen: 01/20/22 09:37 Interval history: Patient had low oxygen stats after surgery. Likely from block. She was admitted last night. She is on 2L O2 at this time. She denies CP, SOB, or pain. Review of Systems Review of Systems: All systems reviewed & are unremarkable except as noted in HPI and below Exam Narrative: Obese 76 y/o female. No acute distress. 2L nasal canula. Dressing dry and intact. Wearing sling. Distal light touch sensation intact. Distal pulses palpable. Able to wiggle fingers. Objective Data Vital Signs Vital Signs: Vital Signs - 24 hr 01/19/22 11:54 01/19/22 15:03 01/19/22 15:10 Temperature 97.4 F L 96.9 F L Pulse Rate 89 85 87 Respiratory Rate 16 22 H 20 Blood Pressure 144/79 H 169/75 H 181/73 H Pulse Oximetry 98 90 94 Oxygen Delivery Room Air Simple Face Mask Simple Face Mask Oxygen Flow Rate 8 8 01/19/22 15:15 01/19/22 15:25 01/19/22 15:35 Temperature Pulse Rate 86 80 75 Respiratory Rate 20 22 H 18 Blood Pressure 168/84 H 142/58 H 146/73 H Pulse Oximetry 94 95 95 Oxygen Delivery Simple Face Mask Simple Face Mask Simple Face Mask Oxygen Flow Rate 8 8 8 01/19/22 15:45 01/19/22 15:55 01/19/22 16:10 Temperature Pulse Rate 72 74 75 Respiratory Rate 16 16 14 Blood Pressure 129/67 128/74 125/77 Pulse Oximetry 95 95 94 Oxygen Delivery Simple Face Mask Simple Face Mask Nasal Cannula Oxygen Flow Rate 8 8 2 01/19/22 16:20 01/19/22 15:30 01/19/22 15:40 Temperature Pulse Rate 75 78 74 Respiratory Rate 18 18 22 H Blood Pressure 139/81 Pulse Oximetry 93 Oxygen Delivery Nasal Cannula Oxygen Flow Rate 2 01/19/22 16:28 01/19/22 16:55 01/19/22 17:25 Temperature Pulse Rate 78 68 72 Respiratory Rate 16 18 18 Blood Pressure 151/75 H 137/71 136/69 Pulse Oximetry 77 L 90 90 Oxygen Delivery Nasal Cannula Nasal Cannula Room Air Oxygen Flow Rate 2 2 01/19/22 17:55 01/19/22 18:25 01/19/22 18:55 Temperature Pulse Rate 76 75 78 Respiratory Rate 20 20 20 Blood Pressure 141/80 H 150/70 H 156/73 H Pulse Oximetry 91 93 93 Oxygen Delivery Room Air Room Air Room Air Oxygen Flow Rate 01/19/22 19:20 01/19/22 19:50 01/19/22 20:34 Temperature 97.0 F L Pulse Rate 88 78 87 Respiratory Rate 19 17 18 Blood Pressure 145/70 H 152/84 H 143/76 H Pulse Oximetry 94 95 98 Oxygen Delivery Room Air Nasal Cannula Oxygen Flow Rate 2 01/19/22 21:44 01/19/22 21:45 01/19/22 23:48 Temperature 96.9 F L Pulse Rate 90 92 84 Respiratory Rate 18 17 18 Blood Pressure 132/75 Pulse Oximetry 94 95 97 Oxygen Delivery Nasal Cannula Autopap Oxygen Flow Rate 1 01/20/22 05:00 01/20/22 08:00 Temperature 97.6 F 97.8 F Pulse Rate 80 85 Respiratory Rate 18 18 Blood Pressure 109/54 L 117/68 Pulse Oximetry 95 93 Oxygen Delivery Oxygen Flow Rate Intake/Output Intake/Output: Intake & Output 01/17/22 01/18/22 01/19/22 01/20/22 23:59 23:59 23:59 23:59 Intake Total 650 300 Output Total 300 Balance 650 0 Meds/Results Medications: Active Medications Generic Name Dose Route Start Last Admin Trade Name Freq PRN Reason Stop Dose Admin Aspirin 81 mg 01/19/22 21:00 01/19/22 22:10 Aspirin 81 Mg Enteric Tablet PO 81 mg HS [facility] Administration Calcium Carbonate 500 mg 01/20/22 09:00 01/20/22 08:54 Calcium/Vitamin D 500 Mg Tablet PO 500 mg QA
[2022-01-20] MEDS: oxyCODONE HCL (*CRX) 5 MG TAB IR PO (11:39)
[2022-01-20] MEDS: ONDANSETRON INJ 4 MG/2 ML VIAL IV PUSH ×2 (12:18→17:52)
--- NOTE | 2022-01-20 15:00 | WPDCN ---
Assessment and Plan Assessment and plan (1) SLAP lesion of right shoulder: Code(s): S43.431A - Superior glenoid labrum lesion of right shoulder, initial encounter Status: Acute Assessment and Plan: Postoperative day 1. Wound care and pain control deferred to primary service as well as DVT prophylaxis. (2) Postoperative hypoxia: Code(s): R09.02 - Hypoxemia; Z98.890 - Other specified postprocedural states Status: Acute Assessment and Plan: No infiltrates noted on chest x-ray today. Elevation of the right diaphragm noted, suspicious for phrenic nerve palsy/paralysis which could be related to interscalene block. This may very well be the cause of her hypoxia. This has not been seen on previous imaging that I can see. Cardiomegaly was also noted on imaging. Continue incentive spirometry and wean oxygen as tolerated. (3) Acquired elevated diaphragm: Code(s): J98.6 - Disorders of diaphragm Status: Acute Assessment and Plan: Hopefully transient phrenic nerve palsy following interscalene block. Plan is as detailed above. (4) Cardiomegaly: Code(s): I51.7 - Cardiomegaly Status: Acute Assessment and Plan: Echocardiogram ordered for a.m. Clinically no evidence of volume overload. (5) Ileus: Code(s): K56.7 - Ileus, unspecified Status: Acute Assessment and Plan: She has had some nausea but no vomiting. Hold on NG tube at this time though if she starts vomiting 1 will be inserted. She will be NPO from now and head of bed will be elevated. Dulcolax suppository x1 with repeat KUB in a.m. (6) Obstructive sleep apnea: Code(s): G47.33 - Obstructive sleep apnea (adult) (pediatric) Status: Acute Assessment and Plan: Hold on CPAP tonight given ileus. Continue oxygen via nasal cannula. (7) Hypertension: Code(s): I10 - Essential (primary) hypertension Status: Acute Assessment and Plan: Blood pressures were reviewed and they have been running a bit high intermittently. Continue to monitor closely and adjust medications accordingly. Additional Plan Thank you for allowing us to participate in this patient's care. Please do not hesitate to contact us with any questions. Supervising physician for this medical consultation is Dr. Puma Solis. HPI Data of Consult Date/Time: 01/20/22 15:00 Requesting Physician: Virgilio Jacobson MD Consult Narrative Narrative: This is a 76-year-old female with hypertension, hyperlipidemia, and obstructive sleep apnea whom the hospitalist service has been consulted for postoperative hypoxia. She had surgery yesterday per Dr. Jacobson for right shoulder tendinitis and SLAP tear. Her surgery was performed under general anesthesia with interscalene block. No immediate complications were documented and she has been doing well in that regard without much pain. Postoperatively she has had an oxygen requirement ranging between 2 to 3 L and chest x-ray today showed right basilar atelectasis with a small effusion, cardiomegaly, and elevation of the right diaphragm. She was instructed to use her incentive spirometer every hour while awake and she states compliance with this. Unfortunately she continues to feel short of breath, will ?like I cannot get in a good deep breath.? She has had a mild, nonproductive cough which she attributes to postnasal drip which has been an ongoing problem for her. Additionally she has had significant nausea and she has not been able to eat much. She has not had a bowel movement the last couple of days and feels as though her abdomen may be a bit distended. She denies fever, chills, sweats, chest pain, pleuritic pain, palpitations, orthopnea, paroxysmal nocturnal dyspnea, lower extremity edema, and vomiting. Review of Systems Review of Systems: Twelve systems were reviewed. No syncope or near syncope. No sick contacts. No fever, chills, or
[2022-01-20] MEDS: MULTIVITAMINS THERAPEUTIC TAB (*BKC) 1 TABLET PO (20:12)
[2022-01-20] MEDS: SOLIFENACIN 5 MG TABLET 10 MG PO (20:12)
[2022-01-20] MEDS: ROSUVASTATIN 10 MG TABLET PO (20:12)
[2022-01-20] MEDS: ASPIRIN 81 MG ENTERIC TABLET PO (20:12)
--- NOTE | 2022-01-20 22:20 | PC.NURSE ---
Place call to Mary Escobar, informed of KUB results. States will put in orders.
[2022-01-20] MEDS: BISACODYL 10 MG SUPPOSITORY RECTAL (23:51)
[2022-01-21] VITALS (9 sets, daily range): BP systolic 132–141; BP diastolic 74–80; PULSE 86–106; RESP 18; TEMP 36.4–36.6; O2SAT 87–98
[2022-01-21 06:15] LABS: Hematocrit 46.8 % (37.0-47.0); Hemoglobin 14.9 g/dL (12.0-15.0); Mean Corpuscular HGB Conc 31.8 g/dl (32-36); Mean Corpuscular Hemoglobin 32.4 pg (26-34); Mean Corpuscular Volume 101.7 fl (80-100); Mean Platelet Volume 9.7 fl (7.4-10.4); Platelet Count Result 337 k/mm3 (150-375); Red Cell Distribution Width 14.2 % (11.5-14.5); White Blood Count 12.9 K/mm3 (4.5-10.0)
[2022-01-21 06:28] LABS: Alanine Aminotransferase 35 U/L (6-35); Albumin Level 4.2 g/dL (3.5-5.1); Alkaline Phosphatase 62 U/L (38-126); Anion Gap 6 mmol/L (8-16); Aspartate Amino Transferase 34 U/L (14-36); Bilirubin,Total 0.5 mg/dL (0.2-1.3); Blood Urea Nitrogen 10 mg/dL (7-17); Calcium 8.7 mg/dL (8.4-10.2); Carbon Dioxide 28 mmol/L (22-30); Chloride 105 mmol/L (98-107); Estimated CRCL calculation 57 ml/min; Estimated Glomerular Filt Rate > 60; Glucose 114 mg/dL (65-110); Magnesium 1.9 mg/dL (1.6-2.3); Potassium 4.1 mmol/L (3.4-5.0); Sodium 139 mmol/L (137-145)
--- NOTE | 2022-01-21 11:01 | PM.PNORT ---
Progress Note: A&P Assessment and Plan (1) Low O2 saturation: Code(s): R79.81 - Abnormal blood-gas level Status: Acute (2) Status post arthroscopy of right shoulder: Code(s): Z98.890 - Other specified postprocedural states Status: Acute Plan Patient had low oxygen stats after surgery. Likely from block. Patient had some nausea yesterday. She notes this has resolved. She has been NPO today. KUB shows improving ileus. She denies CP, SOB, or pain. Block has warn off. She is still on oxygen nasal canula. Patient may use her arm and only needs to use sling for comfort. No lifting. Removed top dressing today. Keep steri-strips on for 2 weeks. She has a follow up appointment in 2 weeks for her shoulder. Will discharge patient once she is cleared medically. Subjective Subjective Date/Time Seen: 01/21/22 11:01 Interval history: Patient states she is feeling better today. She is not nauseous. Notes that she is very hungry. Pain in shoulder controlled. No other complaints. Notes the block has warn off. Review of Systems Review of Systems: All systems reviewed & are unremarkable except as noted in HPI and below Exam Narrative: Obese 76 y/o female. No acute distress. O2 nasal canula. Dressing dry and intact. Wearing sling. Distal light touch sensation intact. Top dressing removed today. No drainage, warmth, erythema, ecchymosis. Distal pulses palpable. Able to wiggle fingers. Objective Data Vital Signs Vital Signs: Vital Signs - 24 hr 01/20/22 12:40 01/20/22 13:00 01/20/22 14:19 Temperature 97.5 F L Pulse Rate 77 Respiratory Rate 20 Blood Pressure 179/86 H 179/85 H 132/88 Pulse Oximetry 97 Oxygen Delivery Oxygen Flow Rate 01/20/22 19:33 01/20/22 21:56 01/20/22 22:16 Temperature 97.7 F Pulse Rate 83 Respiratory Rate 18 16 Blood Pressure 169/91 H Pulse Oximetry 95 98 94 Oxygen Delivery Nasal Cannula Autopap Oxygen Flow Rate 3 01/20/22 20:00 01/21/22 05:48 01/21/22 08:00 Temperature 97.6 F Pulse Rate 88 Respiratory Rate 18 Blood Pressure 141/80 H Pulse Oximetry 98 96 97 Oxygen Delivery Nasal Cannula Nasal Cannula Oxygen Flow Rate 3 3 Intake/Output Intake/Output: Intake & Output 01/18/22 01/19/22 01/20/22 01/21/22 23:59 23:59 23:59 23:59 Intake Total 650 1700 100 Output Total 500 Balance 650 1200 100 Meds/Results Medications: Active Medications Generic Name Dose Route Start Last Admin Trade Name Freq PRN Reason Stop Dose Admin Aspirin 81 mg 01/19/22 21:00 01/20/22 20:12 Aspirin 81 Mg Enteric Tablet PO 81 mg HS [facility] Administration Calcium Carbonate 500 mg 01/20/22 09:00 01/21/22 08:08 Calcium/Vitamin D 500 Mg Tablet PO Not Given QAM ANISHA Docusate Sodium 100 mg 01/19/22 20:34 Docusate Sodium 100 Mg Capsule PO DAILY PRN Constipation Loratadine 10 mg 01/19/22 20:41 01/20/22 08:53 Loratadine 10 Mg Tablet PO 10 mg DAILY PRN Administration Congestion Multivitamins Therapeutic 1 tablet 01/19/22 21:00 01/20/22 20:12 Multivitamins Therapeutic Tab (*Bkc) PO 1 tablet [facility] Administration Multivitamins/Minerals 1 tablet 01/20/22 09:00 01/21/22 08:09 Opti-Gen Tab PO Not Given BID [facility]ENDING [facility] TO [facility] Ondansetron HCl 4 mg 01/19/22 20:34 01/20/22 17:52 Ondansetron Inj 4 Mg/2 Ml Vial IV PUSH 4 mg Q4H PRN Administration Nausea And Vomiting Oxycodone HCl 5 mg 01/19/22 20:34 01/20/22 11:39 Oxycodone Hcl (*Crx) 5 Mg Tab Ir PO 5 mg Q4H PRN Administration Pain Rated 4-6 Oxycodone HCl 10 mg 01/19/22 20:34 Oxycodone Hcl (*Crx) 5 Mg Tab Ir PO Q4H PRN Pain Rated 7-10 Perflutren Lipid Microsphere 0 ml 01/20/22 23:21 Perflutren Lipid Microspheres 1.5 Ml Vial Diluted To 10 Ml Total Volume IV PUSH ONCE PRN adequate visualization Protocol Polyethylene Glycol 17 gm 01/20/22 09:00 01/21/22 08:09 Polyethylene G
--- NOTE | 2022-01-21 12:57 | PM.IMPN ---
Progress Note: A&P Assessment and Plan (1) SLAP lesion of right shoulder: Code(s): S43.431A - Superior glenoid labrum lesion of right shoulder, initial encounter Status: Acute Assessment and Plan: Postoperative day 1. Wound care and pain control deferred to primary service as well as DVT prophylaxis. 01/21/2022 interval history: patient is a 76 year old moderately obese status post right shoulder surgery after the procedure patient developed hypoxia and we were consulted for medical management, chest x-ray was concerning for elevation of the right diaphragm also concern hyperventilation after an surgical block anesthesia, today patient states feeling much better not as short of breath, we will repeat chest x-ray and further recommendation to follow, also patient had a complaint abdominal pain and nausea KUB showed ileus and possibly partial obstruction, morning patient states her GI symptoms have resolved repeat KUB showed resolution of ileus, will start the patient on clear liquid and monitor (2) Postoperative hypoxia: Code(s): R09.02 - Hypoxemia; Z98.890 - Other specified postprocedural states Status: Acute Assessment and Plan: No infiltrates noted on chest x-ray today. Elevation of the right diaphragm noted, suspicious for phrenic nerve palsy/paralysis which could be related to interscalene block. This may very well be the cause of her hypoxia. This has not been seen on previous imaging that I can see. Cardiomegaly was also noted on imaging. Continue incentive spirometry and wean oxygen as tolerated. (3) Acquired elevated diaphragm: Code(s): J98.6 - Disorders of diaphragm Status: Acute Assessment and Plan: Hopefully transient phrenic nerve palsy following interscalene block. Plan is as detailed above. (4) Cardiomegaly: Code(s): I51.7 - Cardiomegaly Status: Acute Assessment and Plan: Echocardiogram ordered for a.m. Clinically no evidence of volume overload. (5) Ileus: Code(s): K56.7 - Ileus, unspecified Status: Acute Assessment and Plan: She has had some nausea but no vomiting. Hold on NG tube at this time though if she starts vomiting 1 will be inserted. She will be NPO from now and head of bed will be elevated. Dulcolax suppository x1 with repeat KUB in a.m. (6) Obstructive sleep apnea: Code(s): G47.33 - Obstructive sleep apnea (adult) (pediatric) Status: Acute Assessment and Plan: Hold on CPAP tonight given ileus. Continue oxygen via nasal cannula. (7) Hypertension: Code(s): I10 - Essential (primary) hypertension Status: Acute Assessment and Plan: Blood pressures were reviewed and they have been running a bit high intermittently. Continue to monitor closely and adjust medications accordingly. Additional Plan Thank you for allowing us to participate in this patient's care. Please do not hesitate to contact us with any questions. Supervising physician for this medical consultation is Dr. Puma Solis. Subjective Date/time seen: 01/21/22 12:57 HPI-This is a 76-year-old female with hypertension, hyperlipidemia, and obstructive sleep apnea whom the hospitalist service has been consulted for postoperative hypoxia. She had surgery yesterday per Dr. Jacobson for right shoulder tendinitis and SLAP tear. Her surgery was performed under general anesthesia with interscalene block.? No immediate complications were documented and she has been doing well in that regard without much pain. Postoperatively she has had an oxygen requirement ranging between 2 to 3 L and chest x-ray today showed right basilar atelectasis with a small effusion, cardiomegaly, and elevation of the right diaphragm. She was instructed to use her incentive spirometer every hour while awake and she states compliance with this. Unfortunately she continues to feel short of breath, will ?like I cannot get in a goo
--- NOTE | 2022-01-21 14:36 | HOMEO2EVAL ---
Evaluation was performed at [facility] Oxygen Evaluation RC: Home Oxygen (O2) Evaluation Start: 01/21/22 11:42 Freq: ONCE Status: Active Protocol: RPE Activity Type Activity Date Activity User E-sign Co-sign Detail Recorded Client Recorded Date Recorded By Document 01/21/22 14:00 [email or web address] [email or web address] 01/21/22 14:36 DJO Document 01/21/22 14:05 [email or web address] [email or web address] 01/21/22 14:36 DJO Document 01/21/22 14:10 [email or web address] [email or web address] 01/21/22 14:36 DJO Document 01/21/22 14:15 [email or web address] [email or web address] 01/21/22 14:36 DJO Document 01/21/22 14:25 [email or web address] [email or web address] 01/21/22 14:36 DJO 01/21/22 01/21/22 01/21/22 14:00 14:05 14:10 Home O2 Evaluation Test Phase Resting Exercise Exercise Oxygen Delivery Room Air Room Air Nasal Cannula Oxygen Flow Rate (L/min) 1 Pulse Oximetry (90-100 %) 91 87 L 88 L Pulse Rate (60-100 beats/min) 88 102 H 105 H Activity Tolerance Ambulation Distance (feet) Ambulation Distance (meters) Treatment Charges O2 Evaluation - Inpatient 01/21/22 01/21/22 14:15 14:25 Home O2 Evaluation Test Phase Exercise Resting Oxygen Delivery Nasal Cannula Room Air Oxygen Flow Rate (L/min) 2 Pulse Oximetry (90-100 %) 91 91 Pulse Rate (60-100 beats/min) 106 H 86 Activity Tolerance Good Ambulation Distance (feet) 500 Ambulation Distance (meters) 152.39 Treatment Charges
--- NOTE | 2022-01-21 15:00 | PM.DS ---
DS: Admitting Diagnosis Discharge Date 01/21/22 Admitting Diagnosis hypoxia post surgery. DS: Discharge Diagnosis Discharge Diagnosis (1) Postoperative hypoxia: Code(s): R09.02 - Hypoxemia; Z98.890 - Other specified postprocedural states Status: Acute (2) Status post arthroscopy of right shoulder: Code(s): Z98.890 - Other specified postprocedural states Status: Acute Plan Patient is feeling much better today. She is POD #2 Right shoulder 1. Arthroscopic labral debridement with chondroplasty and biceps tenotomy 2. Arthroscopic subacromial decompression. 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 No SOB today. She requires 2 L nasal canula with activity. She will go home with and oxygen tank and follow up with her PCP. Ileus found on xray. Patient states she had some nausea most likely due to the pain medication she was given. This has improved and she is tolerating clear liquids. Patient should slowly increase to regular diet over the next few days. Patient has a follow up appointment in 2 weeks. She was instructed to call if any new or worsening symptoms including being unable to tolerate food, or has SOB. She will follow printed post op instructions. Follow up in 2 weeks. DS: Summary Hospital Course Hospital Course: Postoperative hypoxia and ileus. Both resolving. Time Spent with Patient Time attestation: Total time spent providing and/or coordinating discharge services: Exam Narrative: Obese 76 y/o female. No acute distress. O2 nasal canula. Dressing dry and intact. Wearing sling. Distal light touch sensation intact. incisions dry and intact. No drainage, warmth, erythema, ecchymosis. Distal pulses palpable. Able to wiggle fingers. DS: Data Data Completed and Pending Labs on day of discharge: Labs from last 24 hours 01/21/22 01/21/22 05:47 05:47 WBC 12.9 H RBC 4.60 Hgb 14.9 Hct 46.8 MCV 101.7 H MCH 32.4 MCHC 31.8 L RDW 14.2 Plt Count 337 MPV 9.7 Sodium 139 Potassium 4.1 Chloride 105 Carbon Dioxide 28 Anion Gap 6 L BUN 10 D Creatinine 0.90 Estim Creat Clear Calc 57 Estimated GFR > 60 Glucose 114 H Calcium 8.7 Magnesium 1.9 Total Bilirubin 0.5 AST 34 ALT 35 Alkaline Phosphatase 62 Total Protein 7.0 Albumin 4.2 Discharge Plan Discharge Attending physician on discharge: Virgilio Jacobson Consulting providers: Vincenzo Solis Discharging Clinician: Juanita Arambula Anticipated Discharge Date/Time: 01/21/22 14:56 Patient Disposition: Home, Self-Care Activity: may shower Diet: clear liquid Wound Care Instructions: follow printed instructions Discharge Instructions: See green instruction sheets for post op instructions. Slowly increase from clear liquids to regular foods over the next 3 days. Wear oxygen with activity. Call the office with any concerns or if short of breath go to the ER. Patient Instructions: Acute Nausea and Vomiting (DC), Hypoxia (GEN) Stand Alone Forms: General Discharge Instructions Follow-up/Referrals: Juanita Arambula PA [Physician [facility] Supervisor] - Discharge Medications: New hydrocodone-acetaminophen 5-325 mg tablet 1 - 2 tablet PO Q4-6H MDD 6 PRN (Reason: pain) Qty: 30 0RF Continued multivitamin [Daily Multiple] Tablet 1 tablet PO HS Calcium 600 + D(3) 600 mg calcium- 200 unit Capsule 1 cap PO QAM rosuvastatin 10 mg tablet 10 mg PO HS Rx Instructions: 10 mg PO; solifenacin [Vesicare] 10 mg tablet 10 mg HS Rx Instructions: TAKE 1 TABLET DAILY cetirizine [Zyrtec] 10 mg Tablet 10 mg PO DAILY PRN (Reason: Congestion) PreserVision AREDS [id number] eixa-[id number] capsule 1 cap PO BID cholecalciferol (vitamin D3) 2,000 unit tablet 2,000 unit PO QAM aspirin [Adult Low Dose Aspirin] 81 mg tablet,delayed release (DR/EC) 81 mg PO HS
--- NOTE | 2022-01-21 23:21 | ECHO_ITS ---
Patient Info Name: Saba Rosa Age: 76 years : 1945 Gender: Female Ht: 65 in Wt: 223 lbs BSA: 2.20 m2 HR: 85 bpm BP: 132 / 96 mmHg Technical Quality: Fair Exam Date: 01/21/2022 10:40 AM Exam Location: [facility] Patient Status: Outpatient Admit Date: 01/20/2022 Staff Ordering Physician: Camryn Escobar PA-C Unix Architect: Phong Gunter RDCS, RT Attending Provider: Virgilio Jacobson MD Referring Physician: Shawn GRIER; Exam Type: CA echo doppler color flow Study Info Indications R07.89 - Other chest pain Complete two-dimensional, color flow and Doppler transthoracic echocardiogram is performed. Summary 1. Complete two-dimensional, color flow and Doppler transthoracic echocardiogram is performed. 2. Left ventricular chamber dimension is normal. 3. Left ventricular systolic function is normal, estimated at 60-65%. 4. The left ventricular diastolic function is normal. 5. E/e' 9 is minimally elevated. 6. There is mild tricuspid valve regurgitation. 7. No pulmonary hypertension, estimated pulmonary arterial systolic pressure is 30 mmHg. Left Ventricle E/e' 9 is minimally elevated. Left ventricular chamber dimension is normal. Left ventricular systolic function is normal, estimated at 60-65%. The left ventricular diastolic function is normal. Right Ventricle Right ventricular chamber dimension is normal. Right ventricular systolic function is normal. Left Atria Left atrial chamber dimension is normal. Right Atria Right atrial chamber dimension is normal. Aortic Valve The aortic valve is trileaflet. There is no aortic valve stenosis. There is no aortic valve regurgitation. Pulmonic Valve There is no pulmonic regurgitation. Mitral Valve There is no mitral valve stenosis. There is no mitral valve regurgitation. Tricuspid Valve There is mild tricuspid valve regurgitation. No pulmonary hypertension, estimated pulmonary arterial systolic pressure is 30 mmHg. Pericardium/Pleural There is no pericardial effusion. Inferior Vena Cava Normal inferior vena cava with >50% collapse upon inspiration consistent with normal right atrial pressure, 5 mmHg. Aorta The aortic root size at the sinus of Valsalva is normal. Left Ventricular Outflow Tract Name Value Normal LVOT 2D LVOT Diameter 2.0 cm LVOT Doppler LVOT Peak Gradient 4 mmHg LVOT Mean Gradient 3 mmHg LVOT VTI 25 cm LVOT VTI/AV VTI Ratio 0.8 LVOT Stroke Volume 79 ml LVOT CO 6.4 l/min LVOT CI 2.9 l/min/m2 Mitral Valve Name Value Normal MV Doppler MV Decel [place] 309 cm/s2 MV PHT
== END 2022-01-21 17:00 | disposition home or self-care (01) ==
LOC: ANHSURGERY 19:03 → ANH3MEDSUR 19:03
PROVIDERS: Physician Assistant; Admitting Provider Orthopaedic Surgery; PCP Internal Medicine; Visit Provider Orthopaedic Surgery
PROC: (CPT 29805; principal; 2022-01-19 13:30)
DX: M75.21 Bicipital tendinitis, right shoulder (principal); M75.81 Other shoulder lesions, right shoulder; M75.41 Impingement syndrome of right shoulder; M19.011 Primary osteoarthritis, right shoulder; M77.8 Other enthesopathies, not elsewhere classified; G89.18 Other acute postprocedural pain; R79.81 Abnormal blood-gas level; R09.02 Hypoxemia; J98.6 Disorders of diaphragm; I51.7 Cardiomegaly; K56.7 Ileus, unspecified; E78.5 Hyperlipidemia, unspecified; K21.9 Gastro-esophageal reflux disease without esophagitis; G47.33 Obstructive sleep apnea (adult) (pediatric); E66.9 Obesity, unspecified; Z68.37 Body mass index [BMI] 37.0-37.9, adult; Z79.82 Long term (current) use of aspirin; Z87.891 Personal history of nicotine dependence
CPT/HCPCS: 29823; 29826; 64415; 36415; 71046; 74018; 74019; 80053; 83735; 85027; 93306; 94618; 94640; A4565; A9270; G0378; J0690; J1100; J1885; J2250; J2405; J2704; J3010; J7120

== ENCOUNTER 2022-01-27 16:57 | Emergency (ER) | payer MEDICARE, SELFPAY ==
[2022-01-27 17:03] VITALS: BP 145/79; PULSE 104; RESP 12; TEMP 36.2; O2SAT 97
--- NOTE | 2022-01-27 17:18 | ED.FEMALEGU ---
HPI - Female Genitourinary General Chief complaint: Urogenital-Female Stated complaint: UTI SYMPTOMS Time Seen by Provider: 01/27/22 17:10 Source: patient Mode of arrival: ambulatory Limitations: no limitations History of Present Illness HPI Narrative: Patient presents today complaining of dysuria and urinary frequency since yesterday. Denies any additional urinary symptoms to include abdominal pain, back pain, fever, nausea and vomiting. She has tried no [id number]-[id number] treatment prior to arrival. Related Data Home Medications Medication Instructions Recorded Confirmed aspirin 81 mg tablet,delayed 81 mg PO HS 08/01/19 01/19/22 release (Adult Low Dose Aspirin) cholecalciferol (vitamin D3) 50 2,000 unit PO QAM 08/01/19 01/19/22 mcg (2,000 unit) tablet docusate sodium 100 mg tablet 100 mg PO DAILY PRN Constipation 08/01/19 01/19/22 (Stool Softener) vitamins A,C,E-jfft-euyvdh 14,320 1 cap PO BID 08/01/19 01/19/22 unit-226 mg-200 unit capsule (PreserVision AREDS) calcium carbonate 600 mg-vitamin 1 cap PO QAM 09/11/19 01/19/22 D3 5 mcg (200 unit) capsule (Calcium 600 + D(3)) multivitamin (Daily Multiple 1 tablet PO HS 09/11/19 01/19/22 tablet) cetirizine 10 mg tablet (Zyrtec) 10 mg PO DAILY PRN Congestion 01/06/22 01/19/22 rosuvastatin 10 mg tablet 10 mg PO HS 01/06/22 01/19/22 solifenacin 10 mg tablet (Vesicare) 10 mg HS 01/06/22 01/19/22 Allergies Allergy/AdvReac Type Severity Reaction Status Date / Time No Known Allergies Allergy Unknown Verified 01/19/22 11:40 Review of Systems Review of Systems: CONSTITUTIONAL: Denies body aches, fever, chills, or sweats. EYES: Denies visual changes, redness, or discharge. ENT: Denies rhinorrhea, congestion, sore throat, or otalgia. CARDIOVASCULAR: Denies chest pain, palpitations, or edema. RESPIRATORY: Denies cough or dyspnea. GASTROINTESTINAL: Denies abdominal pain, nausea, vomiting, or diarrhea. GENITOURINARY: Denies hematuria.+ Dysuria, frequency SKIN: Denies rash, itching, or wounds. MUSCULOSKELETAL: Denies back pain, joint pain, or myalgia. NEUROLOGIC: Denies headache, numbness, tingling, or weakness. PSYCH: Denies depression or anxiety. PMFSH Past Medical History Medical History Arthritis Dyslipidemia Gastroesophageal reflux disease Hypertension Obstructive sleep apnea Urge incontinence Surgical History Surgical History History of arthroplasty of right shoulder History of carpal tunnel release History of tonsillectomy History of total right hip arthroplasty Family History Family History Mother Family history of dementia Father Family history of heart disease in male family member before age 55 Family history of cardiovascular disease, Onset Age: 68 Grandparent Diabetes mellitus Sibling Hypertension Patient's brother is in good health Social History Social History Social History: Surrogate decision maker: Laura Joyner, daughter. Code status: Full code. Smoking packs per day: 2 Smoking cigarettes per day: 40.0 Years smoked: 20 Smoking pack-years: 40.00 Smoking status: Former smoker Second hand tobacco smoke exposure: No Alcohol intake: current Drinks per week: 1 Alcohol use details: Social alcohol use in moderation. Substance use: never Additional living arrangements comments: . Spiritual care concerns: No Comments At time of signature, I have reviewed and agree with nursing past medical, surgical, social and family history unless otherwise noted. Please see nursing chart for further information. There is no relevant family history pertinent to the presenting complaint Exam Narrative: GENERAL: Well-appearing, well-nourished, and in
== END 2022-01-27 17:31 | disposition home or self-care (01) ==
PROVIDERS: Emergency Provider Nurse Practitioner; PCP Internal Medicine
DX: N30.01 Acute cystitis with hematuria (principal); Z87.891 Personal history of nicotine dependence; M19.90 Unspecified osteoarthritis, unspecified site; E78.5 Hyperlipidemia, unspecified; K21.9 Gastro-esophageal reflux disease without esophagitis; G47.33 Obstructive sleep apnea (adult) (pediatric); Z79.82 Long term (current) use of aspirin
CPT/HCPCS: 81003; 87077; 87086; 87186; 99213; G0463

== ENCOUNTER 2022-02-16 13:51 | Outpatient (CLI) | payer MEDICARE, SELFPAY ==
--- NOTE | ~2022-02-16 | XR_ITS ---
XR chest 2V 02/16/2022 14:19 Indication: Shortness of breath Procedure: 2 view chest Comparison: 01/21/2022 Findings: Heart size is normal. No focal air space disease, pulmonary edema, pleural effusion or suspected pneumothorax. Chronic elev ation of the right diaphragm. Impression: 1: No acute cardiopulmonary disease. Reviewed, dictated and finalized at location A. Impression: 1: No acute cardiopulmonary disease.
[2022-02-16 14:36] LABS: MALB Creatinine Ratio 10.5 mg/g (0-30); Microalbumin Urine Random 16.2 mg/L (0-16.7)
== END 2022-02-16 13:52 | disposition home or self-care (01) ==
PROVIDERS: PCP Internal Medicine; Visit Provider Internal Medicine
DX: R05.9 Cough, unspecified (principal); R73.01 Impaired fasting glucose; Z79.899 Other long term (current) drug therapy
CPT/HCPCS: 36415; 71046; 82043; 83036

== ENCOUNTER 2022-02-17 07:51 | Outpatient (CLI) | payer MEDICARE, SELFPAY ==
[2022-03-15 01:49] VITALS: BMI 38.4
--- NOTE | 2022-03-15 01:49 | WPDSLEEPSTUD ---
Sleep Study Date of Study: 02/17/22 Ordering Provider: Milton Chan APRN Interpreting Physician: Alma Patrick MD Sleep Study Type: CPAP Titration Height: 1.63 m Weight: 101.605 kg Body Mass Index: 38.4 Neck Circumference (inches): 15.5 [place]: 15 Reason for Sleep Study * 01/15/2022 basic PSG showing severe obstructive sleep apnea with an apnea hypopnea index of 93.7, desaturation to 75%, an obstructive AHI of 58.5 and a central apnea hypopnea index of 27.1.? She presents for a CPAP titration. * 01/21/2022 - echo: Left ventricular systolic function is normal, estimated at 60-65%. * 08/2018 - PAP titration - Optimum pressure difficult to establish. APAP [id number] was recommended. BMI was 26.6 at that time. * 08/2018 - PSG - Mild ABIODUN with AHI 13.3. BMI was 26.6. * 2013 - Split PSG - very severe ABIODUN with AHI 77.8. CPAP [id number] was recommended. BMI was 36.8 at that time. Sleep History Enriqueta Rosa is a 76-year-old female who frequently wakes at night with difficulty returning to sleep.? She has been treated for sleep apnea since 2014 using CPAP until the recall.? She became uncertain if she should continue using her machine or stop using her machine.? This is the original machine that she was treated with so it is over 5 years old.? She falls asleep easily while reading or watching TV.? She occasionally awakens from sleep feeling short of breath, occasionally awakens at night with heartburn, belching or coughing.? She frequently snores and this is frequently loud enough that other people complain about it.? She occasionally has trouble sleeping with a cold.? She does not wake up gasping for breath during the night.? She occasionally has breathing problems at night.? She rarely sweats excessively at night and rarely notices her heart pounding or beating irregularly at night.? She frequently falls asleep during the day, frequently falls asleep involuntarily however never falls asleep while driving.? She does not have loss of muscle tone with strong emotion.? She does not have daytime difficulties due to excessive sleepiness.? She is retired.? She does not feel paralyzed on waking or falling asleep.? She does not have vivid dreamlike scenes upon awakening or falling asleep.? She does not feel afraid to go to sleep.? She denies having nightmares.? She occasionally remembers her dreams.? She occasionally has racing thoughts.? She does not feel sad, depressed or anxious.? She does not have muscular tension.? She rarely notices parts of her body jerking and she rarely kicks at night.? She occasionally has crawling and aching feelings in her legs.? She occasionally has leg pain at night.? She does not have morning jaw pain.? She does not grind her teeth during sleep.? She does not have pain during the day or is awakened by pain during the night.? She occasionally wakes up feeling stiff in the morning with sore achy muscles and pain in the neck and spine.? She has fatigue. Normal bedtime is between 11:30 p.m. and 12 midnight, falling asleep within 30-40 minutes, waking 1-2 times during the night to go to the bathroom or get a drink of water.? She is able to return to sleep within 5-10 minutes.? She wakes up between 8:00 a.m. and 8:30 a.m..? She estimates getting 5-6 hours of sleep at night.? Her weekend schedule is the same.? She takes naps in the afternoon or evening.? A short nap is not refreshing.? She awakens feeling refreshed only occasionally.? She reports a 30 lb weight gain in the last year Habits:? Stop tobacco 37 years ago.? Caffeine 2 servings a day.? No alcohol or recreational drugs. [facility] Past Medical History Medical History Arthritis Dyslipidemia Gastroesophageal reflux disease Hypertension Obstructive sleep apnea Urge incontinence Surgical History Surgical History History of arthroplasty of right shoulder History of carpal tunnel release H
== END 2022-02-18 06:29 | disposition home or self-care (01) ==
LOC: ANHCSM 07:58
PROVIDERS: PCP Internal Medicine; Visit Provider Nurse Practitioner Family
DX: G47.31 Primary central sleep apnea (principal); G47.33 Obstructive sleep apnea (adult) (pediatric)
CPT/HCPCS: 95811

== ENCOUNTER 2022-03-04 08:01 | Outpatient (CLI) | payer MEDICARE, SELFPAY ==
[2022-03-04 08:30] VITALS: PULSE 81; O2SAT 93
[2022-03-04 08:35] VITALS: PULSE 93; O2SAT 87
[2022-03-04 08:40] VITALS: O2SAT 90
[2022-03-04 08:45] VITALS: PULSE 90; O2SAT 94
--- NOTE | 2022-03-04 09:48 | HOMEO2EVAL ---
Evaluation was performed at [facility] Home Oxygen Evaluation RC: Home Oxygen (O2) Evaluation Start: 03/04/22 09:44 Freq: Status: Active Protocol: RPE Activity Type Activity Date Activity User E-sign Co-sign Detail Recorded Client Recorded Date Recorded By Document 03/04/22 08:30 PERRY [email or web address] 03/04/22 09:48 PERRY Document 03/04/22 08:35 PERRY [email or web address] 03/04/22 09:48 PERRY Document 03/04/22 08:40 PERRY [email or web address] 03/04/22 09:48 PERRY Document 03/04/22 08:45 PERRY [email or web address] 03/04/22 09:48 PERRY 03/04/22 03/04/22 03/04/22 08:30 08:35 08:40 Home O2 Evaluation Test Phase Resting Exercise Exercise Oxygen Delivery Room Air Room Air Nasal Cannula Oxygen Flow Rate (L/min) 2 Pulse Oximetry (90-100 %) 93 87 L 90 Pulse Rate (60-100 beats/min) 81 93 Activity Tolerance Good Rating of Perceived Dyspnea (PD) +3 Moderate Difficulty, But Can Continue Rate of Perceived Exertion (PE) 13 Somewhat Hard Ambulation Distance (feet) 500 Ambulation Distance (meters) 152.39 Home Oxygen Evaluation Comments Pt requires 2 L with activity. Pt has home o2 Treatment Charges O2 Evaluation - Outpatient 03/04/22 08:45 Home O2 Evaluation Test Phase Resting Oxygen Delivery Room Air Oxygen Flow Rate (L/min) Pulse Oximetry (90-100 %) 94 Pulse Rate (60-100 beats/min) 90 Activity Tolerance Rating of Perceived Dyspnea (PD) Rate of Perceived Exertion (PE) Ambulation Distance (feet) Ambulation Distance (meters) Home Oxygen Evaluation Comments Treatment Charges
--- NOTE | 2022-03-05 22:26 | P.PCNPFT_ITS ---
PFT Procedure Performed PFT Procedure Performed Spirometry with Pre/Post Bronchodilator Plethysmography (Lung Vol) Diffusing Cap (DLCO) Flow Vol Loop PFT Interpretation DOS: 03/04/2022 REQUESTING: Milton Chan APRN REASON FOR TESTING: Shortness of breath PULMONARY FUNCTION TESTS Results are reliable and reproducible. BMI is 37.5. Spirometry: Pre-bronchodilator FEV1 is 57%, 1.23 L, below normal. Pre- bronchodilator FVC is 56%, 1.57 L, below normal. FEV1/FVC ratio is 79%, normal. DYC01-62% is 68%, 3.51 L, decreased. After bronchodilator, there is a 14% increase in FEV1, 65%, 1.4 L. This is an absolute amount of 170 ml which does not meet statistical significance. The FVC increases 9%, 1.71 L, 140 ml, not siggnificance. WFS20-78% increases by 40%, 87% predicted, 440 mL. Lung volumes: Total lung capacity is 68%, 3.51 L, consistent with mild restriction. The slow vital capacity is 68%, 1.92 L, decreased. The SVC is larger than the FVC obtained in spirometry. This shows dynamic airway collapse. FRC is 69%, 2.05 L, normal. ERV is 41%, 0.39 L, below normal. RV is 69%, 1.59 L, normal. RV/TLC is 45%, normal. Airway resistance is 136%, increased. Diffusion: DLCO is 57%, moderately decreased. DLCO/VA is 104%, normal. Flow volume loop: Restrictive pattern. IMPRESSION: Small airways pattern with a good response to bronchodilator, mild restriction, moderate diffusion impairment. Restriction can mask obstruction. Lack of response to bronchodilator should not preclude use if clinically indicated. Compared to her study on 05/31/2014, BMI was 32.6, lower. FEV1 was 103%, normal, and now 2.64 L, much lower, 57% predicted. FVC was 95%, 3.13 L, normal, now 56%, much lower.. The TOF86-97% was 135%, 2.9 L, normal, now 62%. There was no significant response to bronchodilator. TLC was 87%, normal, 4.79 L, now 68%. FRC was 61%, 1.92 L, now 69% about the same. ERV was 28%, 0.3 L, low and now 41%, still low. RV was 71%, 1.6 L and RV/TLC was 33% showing no air trapping. DLCO was 71%, now lower 57%. There has been a greater than expected drop in the FEV1 and FVC. The restriction is new and the drop in DLCO is new. Clinical correlation is recommended. Alma Patrick MD
== END 2022-03-04 08:02 | disposition home or self-care (01) ==
LOC: ANHPFT 08:05
PROVIDERS: PCP Internal Medicine; Visit Provider Nurse Practitioner Family
DX: J98.6 Disorders of diaphragm (principal); R06.02 Shortness of breath; R09.02 Hypoxemia; Z98.890 Other specified postprocedural states; R94.2 Abnormal results of pulmonary function studies
CPT/HCPCS: 94060; 94200; 94618; 94726; 94729

== ENCOUNTER 2022-03-31 07:56 | Outpatient (CLI) | payer MEDICARE, SELFPAY ==
[2022-03-31 08:32] LABS: Alveolar/Arterial O2 Gradient 61.1 mmHg; Base Excess ABG -2.7 mEq/l (+/-2.0); Fractional Inspired Oxygen 28 %; HCO3 ABG 20.7 mEq/l (22.0-26.0); Oxygen Saturation ABG 97.8 % (95.0-100.0); Oxyhemoglobin 96.2 % THb (90.0-100.0); PCO2 ABG 32.3 mmHg (35.0-45.0); PO2 ABG 100.4 mmHg (80.0-100.0); PO2 FiO2 Ratio Arterial Blood 3.59 %; Total Hemoglobin 15.5 g/dL (12.0-18.0); pH ABG 7.424 (7.350-7.450)
[2022-03-31 08:33] LABS: Device NASAL CANNULA; Modified Allen's Test Pass; Site Drawn RIGHT RADIAL
== END 2022-03-31 07:57 | disposition home or self-care (01) ==
LOC: ANHPFT 07:59
PROVIDERS: PCP Internal Medicine; Visit Provider Nurse Practitioner Family
DX: J98.6 Disorders of diaphragm (principal); R06.09 Other forms of dyspnea; R09.02 Hypoxemia; Z98.890 Other specified postprocedural states
CPT/HCPCS: 36600; 82805

== ENCOUNTER 2022-08-03 07:09 | Outpatient (CLI) | payer MEDICARE, SELFPAY ==
[2022-08-03 07:40] LABS: Alanine Aminotransferase 31 U/L (6-35); Albumin Level 4.2 g/dL (3.5-5.1); Alkaline Phosphatase 76 U/L (38-126); Anion Gap 6 mmol/L (8-16); Aspartate Amino Transferase 25 U/L (14-36); Bilirubin,Total 0.4 mg/dL (0.2-1.3); Blood Urea Nitrogen 16 mg/dL (7-17); Calcium 8.4 mg/dL (8.4-10.2); Carbon Dioxide 30 mmol/L (22-30); Chloride 107 mmol/L (98-107); Cholesterol 129 mg/dL (0-200); Estimated Glomerular Filt Rate > 60; Glucose 111 mg/dL (65-110); HDL Direct 36 mg/dL; Potassium 3.9 mmol/L (3.4-5.0); Sodium 143 mmol/L (137-145); Triglycerides 176 mg/dL (<150)
[2022-08-03 07:51] LABS: LDL Cholesterol Direct 59 mg/dL
[2022-08-03 08:02] LABS: Vitamin D 25 Hydroxy 33.2 ng/mL
[2022-08-03 08:10] LABS: Hemoglobin A1C 6.3 % (<5.7)
== END 2022-08-03 07:10 | disposition home or self-care (01) ==
PROVIDERS: PCP Internal Medicine; Visit Provider Nurse Practitioner
DX: E78.5 Hyperlipidemia, unspecified (principal); R73.01 Impaired fasting glucose; E55.9 Vitamin D deficiency, unspecified
CPT/HCPCS: 36415; 80053; 80061; 82306; 83036

== ENCOUNTER 2022-09-21 01:41 | Day surgery (SDC) | payer MEDICARE, SELFPAY ==
[2022-09-13 09:27] VITALS: BMI 37.4
[2022-09-21 09:19] VITALS: BP 151/81; PULSE 81; RESP 17; TEMP 36.1; O2SAT 93; BMI 36.6
[2022-09-21] MEDS: LACTATED RINGERS 1,000 ML 150 ML IV CONT (09:28)
--- NOTE | 2022-09-21 09:44 | WPDANESEPPF ---
Anes - Initial Pre Proc Eval Procedure: Operation Date: 09/21/22 10:30 Proposed Procedures p Colonoscopy - Giles Woodruff MD Date/Time: 09/21/22 09:44 Surgeon: Giles Woodruff MD Pre Op Diagnosis: neoplasm screening Patient Data Age: 77 Gender: F Height: 1.65 m Weight: 99.7 kg Last Vital Signs Temp 96.9 F L 09/21/22 09:19 Pulse 81 09/21/22 09:19 Resp 17 09/21/22 09:19 BP 151/81 H 09/21/22 09:19 Pulse Ox 93 09/21/22 09:19 O2 Del Method Room Air 09/21/22 09:19 Allergies Allergy/AdvReac Type Severity Reaction Status Date / Time No Known Allergies Allergy Unknown Verified 09/21/22 09:18 Home Medications Medication Instructions Recorded Confirmed Type aspirin 81 mg tablet,delayed 81 mg PO HS 08/01/19 09/21/22 History release (Adult Low Dose Aspirin) cholecalciferol (vitamin D3) 50 2,000 unit PO QAM 08/01/19 09/21/22 History mcg (2,000 unit) tablet docusate sodium 100 mg tablet 100 mg PO DAILY PRN Constipation 08/01/19 09/21/22 History (Stool Softener) vitamins A,C,X-bbiz-fosgxv 4,296 1 cap PO BID 08/01/19 09/21/22 History mcg-226 mg-90 mg capsule (PreserVision AREDS) calcium carbonate 600 mg-vitamin 1 cap PO QAM 09/11/19 09/21/22 History D3 5 mcg (200 unit) capsule (Calcium 600 + D(3)) multivitamin (Daily Multiple 1 tablet PO HS 09/11/19 09/21/22 History tablet) cetirizine 10 mg tablet (Zyrtec) 10 mg PO DAILY PRN Congestion 01/06/22 09/21/22 History solifenacin 10 mg tablet (Vesicare) 10 mg PO HS #90 tabs 08/17/22 09/21/22 Rx rosuvastatin 10 mg tablet 10 mg PO HS #90 tabs 08/27/22 09/21/22 Rx Patient hx anesthesia problems: none Family hx anesthesia problems: none Results Review: All pre-operative results and documents have been reviewed as part of the pre-operative evaluation. [facility] Past Medical History Medical History Arthritis COVID-19 Dyslipidemia Gastroesophageal reflux disease Hypertension Obstructive sleep apnea Urge incontinence Surgical History Surgical History History of arthroplasty of right shoulder History of carpal tunnel release History of tonsillectomy History of total right hip arthroplasty Family History Family History Mother Family history of dementia Father Family history of heart disease in male family member before age 55 Family history of cardiovascular disease, Onset Age: 68 Grandparent Diabetes mellitus Sibling Hypertension Patient's brother is in good health Social History Social History (Updated 08/24/22 @ 08:29 by Bhanu Aguilar) Social History: Surrogate decision maker: Laura Joyner, daughter. Code status: Full code. Smoking packs per day: 2 Smoking cigarettes per day: 40.0 Years smoked: 20 Smoking pack-years: 40.00 Smoking status: Former smoker Tobacco type: cigarettes Second hand tobacco smoke exposure: No Alcohol intake: current Drinks per week: 1 Alcohol use details: Social alcohol use in moderation. Substance use: never Substance use type: does not use Current Housing: I Have Housing Concerned About Future Housing: No Difficulty Paying Gas/Electric Bills: No Difficulty Paying for Meds: No Currently Unemployed: No Education: Bachelor's Degree Difficulty w/ Childcare or Family Care: No Living arrangements: alone Additional living arrangements comments: . Occupation/Education: retired Spiritual care concerns: No Anes - Eval Final PreProcedure Day of Procedure 09/21/22 09:44 Patient weight: obese Heart: regular rate and rhythm Lungs: clear to auscultation Airway: Mallampati scale class III Neurological: alert and oriented Last oral intake: >/= 8 hours ASA classification: III Emergent: no Anesthetic plan: proceed Anesthesia
--- NOTE | 2022-09-21 09:50 | PM.HPGS ---
History of Present Illness History of Present Illness Consent: Risks, benefits, and alternatives have been discussed and questions answered. Patient agrees to proceed with procedure. Chief complaint: neoplasm screening Narrative: Saba Rosa is a 77 year old female here for screening colonoscopy, last one 10 years ago Review of Systems Constitutional: Constitutional: Denies headache(s) and Denies weakness Eyes: Eyes: Denies blurry vision ENT: Reports Normal hearing present, Denies headache(s) and Denies neck pain Cardiovascular: Cardiovascular: Denies chest pain and Denies dyspnea Respiratory: Respiratory: Denies dyspnea Gastrointestinal: Gastrointestinal: Reports no additional gastrointestinal complaints Genitourinary: Genitourinary: Denies dysuria Musculoskeletal: Musculoskeletal: Denies neck pain Integumentary/Breasts: Skin/Breast: Denies dry skin Neurologic: Reports Normal hearing present, Denies headache(s) and Denies weakness Psychiatric: Psychiatric: Denies anxiety Endocrine: Endocrine: Denies change in body appearance Hematologic/Lymphatic: Hematologic/Lymphatic: Denies easy bleeding Allergic/Immunologic: Allergic/Immunologic: Denies urticaria PMFSH Past Medical History Medical History Arthritis COVID-19 Dyslipidemia Gastroesophageal reflux disease Hypertension Obstructive sleep apnea Urge incontinence Surgical History Surgical History History of arthroplasty of right shoulder History of carpal tunnel release History of tonsillectomy History of total right hip arthroplasty Family History Family History Mother Family history of dementia Father Family history of heart disease in male family member before age 55 Family history of cardiovascular disease, Onset Age: 68 Grandparent Diabetes mellitus Sibling Hypertension Patient's brother is in good health Social History Social History (Updated 08/24/22 @ 08:29 by Bhanu Aguilar) Social History: Surrogate decision maker: Laura Joyner, daughter. Code status: Full code. Smoking packs per day: 2 Smoking cigarettes per day: 40.0 Years smoked: 20 Smoking pack-years: 40.00 Smoking status: Former smoker Tobacco type: cigarettes Second hand tobacco smoke exposure: No Alcohol intake: current Drinks per week: 1 Alcohol use details: Social alcohol use in moderation. Substance use: never Substance use type: does not use Current Housing: I Have Housing Concerned About Future Housing: No Difficulty Paying Gas/Electric Bills: No Difficulty Paying for Meds: No Currently Unemployed: No Education: Bachelor's Degree Difficulty w/ Childcare or Family Care: No Living arrangements: alone Additional living arrangements comments: . Occupation/Education: retired Spiritual care concerns: No Meds Home Medications and Allergies Home Medications Medication Instructions Recorded Confirmed Type aspirin 81 mg tablet,delayed 81 mg PO HS 08/01/19 09/21/22 History release (Adult Low Dose Aspirin) cholecalciferol (vitamin D3) 50 2,000 unit PO QAM 08/01/19 09/21/22 History mcg (2,000 unit) tablet docusate sodium 100 mg tablet 100 mg PO DAILY PRN Constipation 08/01/19 09/21/22 History (Stool Softener) vitamins A,C,Q-fmbv-lqzzwb 4,296 1 cap PO BID 08/01/19 09/21/22 History mcg-226 mg-90 mg capsule (PreserVision AREDS) calcium carbonate 600 mg-vitamin 1 cap PO QAM 09/11/19 09/21/22 History D3 5 mcg (200 unit) capsule (Calcium 600 + D(3)) multivitamin (Daily Multiple 1 tablet PO HS 09/11/19 09/21/22 History tablet) cetirizine 10 mg tablet (Zyrtec) 10 mg PO DAILY PRN Congestion 01/06/22 09/21/22 History solifenacin 10 mg tablet (Vesicare) 10 mg PO HS #90 tabs 08/17/22 09/21/22 Rx rosuvastatin 10 m
[2022-09-21 10:03] VITALS: BP 94/58; PULSE 72; RESP 26; O2SAT 91
[2022-09-21 10:13] VITALS: BP 101/52; PULSE 70; RESP 26; O2SAT 91
[2022-09-21 10:23] VITALS: BP 118/60; PULSE 71; RESP 22; O2SAT 94
== END 2022-09-21 10:29 | disposition home or self-care (01) ==
PROVIDERS: PCP Internal Medicine; Visit Provider Internal Medicine Gastroenterology
PROC: 0DJD8ZZ Inspection of Lower Intestinal Tract, Via Natural or Artificial Opening Endoscopic (ICD-10-PCS; CPT 45378; principal; 2022-09-21 10:30)
DX: Z12.11 Encounter for screening for malignant neoplasm of colon (principal); K57.30 Diverticulosis of large intestine without perforation or abscess without bleeding; D12.2 Benign neoplasm of ascending colon; K64.8 Other hemorrhoids; I10 Essential (primary) hypertension; E78.5 Hyperlipidemia, unspecified; K21.9 Gastro-esophageal reflux disease without esophagitis; G47.33 Obstructive sleep apnea (adult) (pediatric); Z79.82 Long term (current) use of aspirin; Z87.891 Personal history of nicotine dependence; E66.9 Obesity, unspecified; Z68.36 Body mass index [BMI] 36.0-36.9, adult
CPT/HCPCS: 45385; 88305; J2704; J7120

== ENCOUNTER 2022-09-27 17:10 | Outpatient (CLI) | payer MEDICARE, SELFPAY ==
--- NOTE | ~2022-09-27 | XR_ITS ---
EXAM: XR lumbar spine 2-3V DATE: 09/27/2022 17:39 HISTORY: SPINAL STENOSIS, BULGING DISC. PAIN RADIATES RIGHT LEG . COMPARISON: 04/21/2017, images only. FINDINGS: 5 nonrib-bearing lumbar-type vertebral bodies. Decreased mineralization. 5 mm anterolisthe sis at L4-5 which increases slightly in flexion and reduces slightly in extension. Incidental note of a grade 1 retrolisthesis at T12-L1 which is stable in flexion and extension. Vertebral body heights preserved. Multilevel disc space narrowing and marginal osteophytosis. Bridging osteophyte anteriorly at L5-S1. Severe multilevel facet sclerosis and hypertrophy. Interspinous narrowing in the upper lum bar spine. No fracture or dislocation. IMPRESSION: Grade 1 dynamic listhesis at L4-5. Stable grade 1 retrolisthesis at T12-L1. Multilevel de generative disc disease. Multilevel severe facet arthropathy. Reviewed, dictated and finalized at location K. METRY DOCTOR IMPRESSION: Grade 1 dynamic listhesis at L4-5. Stable grade 1 retrolisthesis at T12-L1. Multilevel degenerative disc disease. Multilevel severe facet arthropa thy.
== END 2022-09-27 17:11 | disposition home or self-care (01) ==
LOC: ANHIMG 17:18
PROVIDERS: PCP Internal Medicine; Visit Provider Physical Medicine & Rehabilitation
DX: M48.062 Spinal stenosis, lumbar region with neurogenic claudication (principal); M51.36 Other intervertebral disc degeneration, lumbar region
CPT/HCPCS: 72100

== ENCOUNTER 2022-11-11 08:13 | Outpatient (CLI) | payer MEDICARE, SELFPAY ==
--- NOTE | ~2022-11-11 | MM_ITS ---
EXAMINATION: MM screening leonarda BI w emelia HISTORY: Screening TECHNIQUE: Craniocaudal and mediolateral oblique 3-D tomosynthesis images were obtained and synthetic 2-D images were generated. CAD analysis was submitted and interpreted. COMPARISON: Comparison to multiple prior studies sequentially, with oldest reviewed study dated 10/03. BREAST PARENCHYMAL COMPOSITION: There are scattered areas of fibroglandular density. FINDINGS: There is no evidence of suspicious mass, calcification, or architectural distortion to sugg est malignancy in either breast. There has been no suspicious interval change. IMPRESSION: 1. No mammographic evidence of malignancy. 2. Recommend routine screening mammography in one year. BI-RADS Category 1: Negative Reviewed, dictated and finalized at location A.
== END 2022-11-11 08:14 | disposition home or self-care (01) ==
PROVIDERS: PCP Internal Medicine; Visit Provider Internal Medicine
DX: Z12.31 Encounter for screening mammogram for malignant neoplasm of breast (principal)
CPT/HCPCS: 77063; 77067

== ENCOUNTER 2023-02-01 08:37 | Outpatient (CLI) | payer MEDICARE, SELFPAY ==
[2023-02-01 09:03] LABS: Hemoglobin A1C 5.6 % (<5.7)
[2023-02-01 09:06] LABS: Alanine Aminotransferase 41 U/L (6-35); Albumin Level 4.3 g/dL (3.5-5.1); Alkaline Phosphatase 78 U/L (38-126); Anion Gap 3 mmol/L (8-16); Aspartate Amino Transferase 27 U/L (14-36); Bilirubin,Total 0.4 mg/dL (0.2-1.3); Blood Urea Nitrogen 20 mg/dL (7-17); Calcium 8.8 mg/dL (8.4-10.2); Carbon Dioxide 31 mmol/L (22-30); Chloride 106 mmol/L (98-107); Cholesterol 119 mg/dL (0-200); Estimated Glomerular Filt Rate > 60; Glucose 100 mg/dL (65-110); HDL Direct 33 mg/dL; Potassium 4.2 mmol/L (3.4-5.0); Sodium 140 mmol/L (137-145); Triglycerides 231 mg/dL (<150)
[2023-02-01 09:17] LABS: LDL Cholesterol Direct 51 mg/dL
== END 2023-02-01 08:38 | disposition home or self-care (01) ==
PROVIDERS: PCP Nurse Practitioner Family; Visit Provider Nurse Practitioner Family
DX: G56.01 Carpal tunnel syndrome, right upper limb (principal); I10 Essential (primary) hypertension; Z79.899 Other long term (current) drug therapy
CPT/HCPCS: 36415; 80053; 80061; 83036; 84443

== ENCOUNTER 2023-05-20 09:54 | Outpatient (CLI) | payer MEDICARE, SELFPAY ==
--- NOTE | 2023-05-20 10:44 | ECG_ITS ---
Measurements Intervals Hart Rate: 77 P: 35 CO: 155 QRS: -9 QRSD: 82 T: 10 QT: 369 QTc: 418 Interpretive Statements SINUS RHYTHM LOW QRS VOLTAGE IN PRECORDIAL LEADS [QRS DEFLECTION < 1.0 mV IN CHEST LEADS] COMPARED TO ECG 01/12/2022 09:44:13 NO SIGNIFICANT CHANGES Electronically Signed On 05-20-2023 14:29:44 CDT by Nixon Greer M.D.
[2023-05-20 11:12] LABS: Hematocrit 45.5 % (37.0-47.0); Hemoglobin 14.8 g/dL (12.0-15.0); Mean Corpuscular HGB Conc 32.5 g/dl (32-36); Mean Corpuscular Hemoglobin 32.2 pg (26-34); Mean Corpuscular Volume 98.9 fl (80-100); Mean Platelet Volume 9.9 fl (7.4-10.4); Platelet Count Result 310 k/mm3 (150-375); Red Cell Distribution Width 14.1 % (11.5-14.5); White Blood Count 9.2 K/mm3 (4.5-10.0)
[2023-05-20 11:22] LABS: Albumin Level 4.4 g/dL (3.5-5.1); Estimated Glomerular Filt Rate > 60; Glucose 99 mg/dL (65-110)
[2023-05-20 11:22] LABS: Urine Cotinine NEGATIVE
[2023-05-20 11:24] LABS: Alanine Aminotransferase 32 U/L (6-35); Albumin Level 4.4 g/dL (3.5-5.1); Alkaline Phosphatase 79 U/L (38-126); Anion Gap 7 mmol/L (8-16); Aspartate Amino Transferase 35 U/L (14-36); Bilirubin,Total 0.5 mg/dL (0.2-1.3); Blood Urea Nitrogen 15 mg/dL (7-17); Calcium 9.4 mg/dL (8.4-10.2); Carbon Dioxide 28 mmol/L (22-30); Chloride 105 mmol/L (98-107); Estimated Glomerular Filt Rate > 60; Glucose 99 mg/dL (65-110); Potassium 4.1 mmol/L (3.4-5.0); Sodium 140 mmol/L (137-145)
[2023-05-20 11:33] LABS: Hemoglobin A1C 5.8 % (<5.7)
[2023-05-20 12:00] LABS: Vitamin D 25 Hydroxy 46.2 ng/mL
== END 2023-05-20 09:55 | disposition home or self-care (01) ==
PROVIDERS: PCP Family Medicine; Visit Provider Orthopaedic Surgery
DX: Z79.899 Other long term (current) drug therapy (principal); E78.5 Hyperlipidemia, unspecified; R73.01 Impaired fasting glucose; M16.12 Unilateral primary osteoarthritis, left hip; I10 Essential (primary) hypertension; E55.9 Vitamin D deficiency, unspecified; E66.9 Obesity, unspecified; G47.33 Obstructive sleep apnea (adult) (pediatric)
CPT/HCPCS: 80053; 80307; 82040; 82306; 82565; 82947; 83036; 85014; 85018; 85027; 93005

== ENCOUNTER 2023-06-22 09:58 | Outpatient (CLI) | payer MEDICARE, SELFPAY ==
[2023-06-22 11:06] LABS: Basophils Absolute Auto 0.1 K/mm3 (0.0-0.1); Basophils Percent Auto 0.8 % (0.2-1.2); Eosinophils Absolute Auto 0.3 K/mm3 (0-0.3); Hematocrit 42.7 % (37.0-47.0); Hemoglobin 13.4 g/dL (12.0-15.0); Immature Granulocyte Absolute 0.02 K/mm3 (0.00-0.031); Immature Granulocyte Percent A 0.3 % (0-0.5); Lymphocytes Absolute Auto 2.45 K/mm3 (0.9-3.2); Lymphocytes Percent Auto 37.5 % (18.3-44.2); Mean Corpuscular HGB Conc 31.4 g/dl (32-36); Mean Corpuscular Hemoglobin 31.6 pg (26-34); Mean Corpuscular Volume 100.7 fl (80-100); Mean Platelet Volume 9.8 fl (7.4-10.4); Monocytes Absolute Auto 0.5 K/mm3 (0.1-0.6); Monocytes Percent Auto 7.2 % (2.6-8.5); Neutrophils Absolute Auto 3.3 K/mm3 (1.3-6.7); Neutrophils Percent Auto 50.2 % (45.5-73.1); Platelet Count Result 292 k/mm3 (150-375); Red Blood Count 4.24 M/mm3 (4.2-5.4); Red Cell Distribution Width 14.6 % (11.5-14.5); White Blood Count 6.5 K/mm3 (4.5-10.0)
== END 2023-06-22 09:59 | disposition home or self-care (01) ==
LOC: ANHSURGERY 10:02
PROVIDERS: PCP Family Medicine; Visit Provider Orthopaedic Surgery
DX: Z01.818 Encounter for other preprocedural examination (principal); M16.12 Unilateral primary osteoarthritis, left hip
CPT/HCPCS: 36415; 85025; 87081

== ENCOUNTER 2023-07-19 03:03 | Day surgery (SDC) | payer MEDICARE, SELFPAY ==
--- NOTE | 2023-06-22 09:47 | PC.NURSE ---
PRE-OP INSTRUCTIONS, PLEASE READ CAREFULLY Report to the Outpatient Waiting Room, entrance under the green pavilion located off [facility], at time _0600_ on date _07/19/23_. Planned Procedure Time: _0730_. PACK A SMALL OVERNIGHT BAG AND LEAVE IN THE CAR ALONG WITH YOUR WALKER Time changes happen often and if your time is changed the preop area will call you the afternoon before. - You and your visitor will be asked to self-screen and do not enter if you have any COVID symptoms. - A mask is optional within the hospital at this time. -VISITING HOURS 8AM-8PM Patients may have clear liquids (water, carbonated beverages, clear teas, apple juice) until 3 hours prior to surgery (0430 AM) with a maximum of 20 ounces. - No food from midnight until time of surgery Take the following medications with a SIP of water the morning of surgery: _TYLENOL IF NEEDED_ DO NOT STOP ANY OF YOUR OTHER PRESCRIPTION MEDICATIONS PRIOR TO SURGERY ?EXCEPT THE FOLLOWING Medications to discontinue per DR. CLINTON - _ASPIRIN, ADVIL, VITAMINS & SUPPLEMENTS 7 DAYS PRIOR TO SURGERY (PER PATIENT), Date to take last dose 07/11/23_ Please no make-up, nail tamazight, hairspray, perfume, deodorant, or body powder the day of surgery. No jewelry (including any body piercings) or valuables the day of surgery, leave them at home. Please take a shower or bath the night before, or the morning of, surgery with an antibacterial soap. Wear comfortable, loose fitting clothing. - Jewelry must be removed prior to entering the operating room. Rings and piercings that are not removed may be cut off. - The hospital will not accept responsibility for valuables. - Please leave all valuables, including medications, at home the day of surgery. If you are going home after surgery, a licensed cdl flatbed truck driver must drive you home. - NO public transportation without another adult if you receive anesthesia. - We recommend that an adult stay with you for 24 hours following discharge. - We also recommend that you do not drive, make important decision, drink alcoholic beverages, or take any drugs that were not prescribed by your health care provider for at least 24 hours after your discharge time. Follow any additional instructions given to you from your surgeon. If you or anyone in your household have experienced Covid symptoms in the past week, please notify your surgeon or the nurse liaison at the phone number below for possible testing. instructions given to _PATIENT_and asked if any additional questions and then verbalized understanding. Patient advised to call surgeon office or pre surgery nurse liaison [phone] if any additional questions.
[2023-06-22 10:22] VITALS: BP 142/58; PULSE 64; RESP 20; TEMP 37.2; O2SAT 99; BMI 36.9
[2023-07-19] VITALS (18 sets, daily range): BP systolic 124–163; BP diastolic 47–87; PULSE 70–100; RESP 12–20; TEMP 36–36.6; O2SAT 94–100
--- NOTE | ~2023-07-19 | XR_ITS ---
Left Hip Technique: Portable AP an lateral views Clinical History: Status post hip arthroplasty Findings: Patient is status post left hip arthroplasty. Orthopedic hardware alignment appears anatomi c. No hardware complication is evident. Subcutaneous emphysema and swelling is likely postoperative i n nature. No acute osseous fracture is seen. Impression: Status post total left hip arthroplasty, without evidence of hardware complication. Reviewed, dictated and finalized at location . PROFILER Impression: Status post total left hip arthroplasty, without evidence of hardware complicat ion.
--- NOTE | 2023-07-19 07:04 | SUR.PREOP ---
PT HAS A SMALL SKIN TEAR ON LOWER LEFT LEG. DR CLINTON HAS SEEN AND AWARE, OK TO PROCEDE.
--- NOTE | 2023-07-19 07:10 | WPDANESEPPF ---
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 Patient Data Age: 77 Gender: F Height: 1.64 m Weight: 100 kg Last Vital Signs Temp 98.9 F 06/22/23 10:22 Pulse 64 06/22/23 10:22 Resp 20 06/22/23 10:22 BP 142/58 H 06/22/23 10:22 Pulse Ox 99 06/22/23 10:22 O2 Del Method Room Air 06/22/23 10:22 Allergies Allergy/AdvReac Type Severity Reaction Status Date / Time No Known Allergies Allergy Unknown Verified 06/22/23 10:15 Home Medications Medication Instructions Recorded Confirmed Type aspirin 81 mg tablet,delayed 81 mg PO HS 08/01/19 06/22/23 History release (Adult Low Dose Aspirin) cholecalciferol (vitamin D3) 50 2,000 unit PO QAM 08/01/19 06/22/23 History mcg (2,000 unit) tablet docusate sodium 100 mg tablet 100 mg PO DAILY PRN Constipation 08/01/19 06/22/23 History (Stool Softener) vitamins A,C,Z-sbug-fljcgn 4,296 1 cap PO BID 08/01/19 06/22/23 History mcg-226 mg-90 mg capsule (PreserVision AREDS) calcium carbonate 600 mg-vitamin 1 cap PO QAM 09/11/19 06/22/23 History D3 5 mcg (200 unit) capsule (Calcium 600 + D(3)) multivitamin (Daily Multiple 1 tablet PO HS 09/11/19 06/22/23 History tablet) cetirizine 10 mg tablet (Zyrtec) 10 mg PO DAILY PRN Congestion 01/06/22 06/22/23 History rosuvastatin 10 mg tablet 10 mg PO HS #90 tabs 06/10/23 06/22/23 Rx solifenacin 10 mg tablet (Vesicare) 10 mg PO HS #90 tabs 06/14/23 06/22/23 Rx acetaminophen 500 mg tablet 1,000 mg PO QID PRN Pain 06/22/23 06/22/23 History ibuprofen 200 mg tablet (Advil) 200 mg PO BID PRN Pain 06/22/23 06/22/23 History Patient hx anesthesia problems: none Family hx anesthesia problems: none Results Review: All pre-operative results and documents have been reviewed as part of the pre-operative evaluation. [facility] Past Medical History Medical History Arthritis COVID-19 Dyslipidemia Gastroesophageal reflux disease Hypertension Obstructive sleep apnea Urge incontinence Surgical History Surgical History History of arthroplasty of right shoulder History of carpal tunnel release History of tonsillectomy History of total right hip arthroplasty Family History Family History Mother Family history of dementia Father Family history of heart disease in male family member before age 55 Family history of cardiovascular disease, Onset Age: 68 Grandparent Diabetes mellitus Sibling Hypertension Patient's brother is in good health Social History Social History Social History: Surrogate decision maker: Laura Joyner, daughter. Code status: Full code. Smoking packs per day: 2 Smoking cigarettes per day: 40.0 Years smoked: 20 Smoking pack-years: 40.00 Smoking status: Former smoker Tobacco type: cigarettes Second hand tobacco smoke exposure: No Smoking end date: 08/15/84 Additional smoking assessment comments: PT DENIES ALL FORMS OF TOBACCO USE Alcohol intake: current Drinks per week: 0 Alcohol use details: 1/MONTH IF THAT Substance use: never Substance use type: does not use Lack of Transportation: No Lack of Food: Never True Current Housing: I Have Housing Concerned About Future Housing: No Difficulty Paying Gas/Electric Bills: No Difficulty Paying for Meds: No Currently Unemployed: No Education: Bachelor's Degree Difficulty w/ Childcare or Family Care: No Living arrangements: alone Additional living arrangements comments: . Occupation/Education: retired Spiritual care concerns: No
[2023-07-19] MEDS: TRANEXAMIC ACID 1,000MG/ISO100 1,000 MG/100 ML BAG 200 MG IVPB (07:15)
[2023-07-19] MEDS: LACTATED RINGERS 1,000 ML 30 ML IV CONT ×2 (07:15→10:51)
[2023-07-19] MEDS: ACETAMINOPHEN 500 MG TABLET 1000 MG PO ×3 (07:15→20:15)
--- NOTE | 2023-07-19 07:16 | WPDHPUPDATE1 ---
History and Physical Update Update Date/Time: 07/19/23 07:16 History and Physical has been reviewed, including an updated exam of the patient. There are NO changes in the patient's condition.Except small left lateral leg skin tear. No sign of infection. Ok to proceed. Risks, benefits, and alternatives have been discussed and questions answered. Patient agrees to proceed with procedure.
[2023-07-19] MEDS: ceFAZolin 2 GM/D5W 50 ML 2 GM/50 ML BAG IVPB ×3 (07:34→23:33)
--- NOTE | 2023-07-19 09:54 | W.PM.PROC2 ---
Procedure Note - Detailed Date of Procedure 07/19/23 Pre-op Diagnosis primary oa left hip Post-op Diagnosis Same Procedure Performed Left Total Hip Arthroplasty Surgeon Virgilio Jacobson MD Car Varnisher Juanita Arambula PA-C Anesthesia General Findings Mild acetabular dysplasia, with labral overgrowth. Good bone quality. Description of Procedure The patient was given preoperative antibiotics. A general anesthetic was administered. The patient was carefully placed in the lateral decubitus position on the PEG board. The shoulders and hips were carefully positioned for component and leg length positioning reference. The hip was prepped and draped in the usual sterile fashion. A longitudinal incision was created over the posterior aspect of the greater trochanter. Careful dissection was brought down through the deep fascia with electrocautery. A minimally invasive optimized posterior approach to the hip was performed. The short external rotators and capsule were taken down in an L-shaped capsulotomy. The tissue was tagged for later repair using number 2 high strength suture. The femoral neck was measured and taken in situ. The femoral head was removed. The acetabulum was carefully exposed. The inferior capsule was released. The labrum was resected. The acetabulum was sequentially reamed to the intended cup size. The cup was impacted into position with excellent press-fit. Typical anatomic landmarks, including the bony contact points as well as the inferior transverse acetabular ligament were used to confirm cup positioning with preoperative templating. Attention was turned to the femur, which was carefully exposed. The hip was reamed and then broached sequentially. Excellent press-fit was obtained with the broach. The hip was trialed. Measurements were utilized, including the lesser trochanter as well as the center of the femoral head and the tip of the trochanter, and excellent assessment of the offset and leg lengths were confirmed. The real component was impacted into position. Trialing confirmed appropriate leg length and offset with soft tissue balancing as well apparent feel of the leg, both at the knee and the heel. Soft tissues were assessed using the the iliotibial band. Reduction of the posterior capsule and external rotators were also used as a secondary assessment. The hip was copiously irrigated with pulsatile lavage antibiotic solution periodically throughout the procedure. The real components were then assembled and reduced. The hip was stable throughout typical maneuvers, including extension, external rotation to 70 degrees, the position of sleep as well as flexion to 90 degrees with internal rotation past 45 degrees. The shake test confirmed stability without impingement. Osteophytes were removed as necessary. The short external rotators and capsule were repaired back to the posterior trochanter through drill holes. The deep fascia was repaired with running number 2 Quill suture, followed by 0 Stratafix suture and 2-0 Stratafix suture in the dermis. Steri-Strips were placed on the skin, followed by a sterile silver occlusive dressing. There were no complications. Meticulous hemostasis was maintained with the AquaMantys device. The patient was brought to the recovery room in stable condition. There were no complications. Physician botany laboratory assistant, Juanita Arambula PA-C, required for surgery; including patient positioning, draping, tissue retraction, maintaining instrument position, hip dislocation/ relocation, wound closure, and dressing placement. Implants The Accolade II hip stem, 127 degree size 4 , was utilized with excellent press-fit. The 50 mm Trident II acetabular component was impacted with excellent press-fit stability. Neutral polyethylene insert 36 mm alpha code D. The +2.5, 36 mm Biolox ceramic femoral head was utilized. Estimated Blood Loss 200 Drains No Packing No Pathology None sent Complications No imme
[2023-07-19] MEDS: fentaNYL CITRATE INJ (*CRX) 100 MCG/2 ML VIAL 25 MCG IV PUSH ×8 (09:58→11:32)
[2023-07-19] MEDS: ONDANSETRON INJ 4 MG/2 ML VIAL IV PUSH (10:30)
[2023-07-19] MEDS: diphenhydrAMINE HCl INJ 50 MG/ML VIAL 6.25 MG IV PUSH (10:58)
--- NOTE | 2023-07-19 15:33 | ADMGEN ---
This patient, Saba Rosa, was admitted to 3 [facility] Surg Room 301-01. Patient/family oriented to hospital policies and general routines including ID bracelet, bed and alarms, visiting hours, pain management, procedures, bathroom and other care routines, personal items, smoking policy, room service/diet, and visiting hours. Information on how to activate the Rapid Response Team has been discussed. Patient/Family are encouraged to report perceived risks to care and to ask questions if they do not understand what they are told or what they should do.
[2023-07-19] MEDS: OPTI-GEN TAB 1 TABLET PO (17:20)
[2023-07-19] MEDS: MELOXICAM 7.5 MG TABLET PO (17:20)
[2023-07-19] MEDS: ASPIRIN 81 MG ENTERIC TABLET PO (17:20)
[2023-07-19] MEDS: SENNA/DOCUSATE SODIUM TABLET 2 TAB PO (17:20)
[2023-07-19] MEDS: SOLIFENACIN 5 MG TABLET 10 MG PO (20:14)
[2023-07-19] MEDS: traMADol HCL (*CRX) 50 MG TABLET PO (20:15)
[2023-07-19] MEDS: ROSUVASTATIN 10 MG TABLET PO (20:15)
[2023-07-19] MEDS: FAMOTIDINE 20 MG TABLET PO (20:15)
[2023-07-20] VITALS: BP 103/45; PULSE 72; RESP 14; TEMP 36.2; O2SAT 97
[2023-07-20 04:00] VITALS: BP 135/76; PULSE 85; RESP 18; TEMP 36.5; O2SAT 100
[2023-07-20] MEDS: traMADol HCL (*CRX) 50 MG TABLET PO (05:50)
[2023-07-20 06:08] LABS: Basophils Percent Auto 0.2 % (0.2-1.2); Eosinophils Percent Auto 0.1 % (0-4.4); Hematocrit 38.2 % (37.0-47.0); Hemoglobin 12.1 g/dL (12.0-15.0); Immature Granulocyte Absolute 0.04 K/mm3 (0.00-0.031); Immature Granulocyte Percent A 0.3 % (0-0.5); Lymphocytes Absolute Auto 2.13 K/mm3 (0.9-3.2); Lymphocytes Percent Auto 17.8 % (18.3-44.2); Mean Corpuscular HGB Conc 31.7 g/dl (32-36); Mean Corpuscular Hemoglobin 31.2 pg (26-34); Mean Corpuscular Volume 98.5 fl (80-100); Mean Platelet Volume 9.8 fl (7.4-10.4); Neutrophils Absolute Auto 8.8 K/mm3 (1.3-6.7); Neutrophils Percent Auto 73.6 % (45.5-73.1); Platelet Count Result 274 k/mm3 (150-375); Red Blood Count 3.88 M/mm3 (4.2-5.4); Red Cell Distribution Width 14.1 % (11.5-14.5)
[2023-07-20 06:21] LABS: Anion Gap 9 mmol/L (8-16); Blood Urea Nitrogen 17 mg/dL (7-17); Calcium 8.6 mg/dL (8.4-10.2); Carbon Dioxide 26 mmol/L (22-30); Chloride 104 mmol/L (98-107); Estimated CRCL calculation 55 ml/min; Estimated Glomerular Filt Rate > 60; Glucose 123 mg/dL (65-110); Potassium 4.6 mmol/L (3.4-5.0); Sodium 139 mmol/L (137-145)
[2023-07-20 08:00] VITALS: BP 124/59; PULSE 80; RESP 18; TEMP 36.4; O2SAT 97
--- NOTE | 2023-07-20 08:24 | PM.DS ---
DS: Admitting Diagnosis Discharge Date 07/20/23 Admitting Diagnosis OA Left hip DS: Discharge Diagnosis Discharge Diagnosis (1) Status post total hip replacement, left: Code(s): Z96.642 - Presence of left artificial hip joint Status: Acute Assessment and Plan: Postop day 1: Total hip arthroplasty. Patient tolerated procedure well. No complications. Pain manageable with pain medication. No numbness or tingling. We had a lengthy discussion regarding postoperative wound care, limitations, expectations, and exercises. Patient shows good understanding. Patient has had initial physical therapy and is tolerating it well. DVT prophylaxis: 81 mg baby aspirin b.i.d. for 14 days. Short frequent walks. Pain medication: Percocet. Meloxicam. Patient has followup appointment with Dr. Jacobson in 3 weeks DS: Summary Hospital Course Reason for hospitalization: Total hip arthroplasty Hospital Course: Patient tolerated procedure well. Has had initial PT/OT. Patient did have bleeding from incision site. Dressing removed, cleaned with Betadine, steri strips reapplied, dressing reapplied. No drainage at the time of discharge. Status at Discharge Functional status at discharge: uses cane/walker Overall status at discharge: patient is progressing back to baseline Time Spent with Patient Time attestation: Total time spent providing and/or coordinating discharge services: Exam Narrative: Overweight 77 y/o female. Resting comfortably in bed. Wearing leg pumps bilaterally. Dressing dry and intact with no drainage. Mild swelling. No ecchymosis. No erythema. No hematoma. Range of motion limited due to pain. Calf nontender. Thigh nontender. Neurologic status intact. No varicosities. Distal pulses palpable. DS: Data Data Completed and Pending Labs on day of discharge: Labs from last 24 hours 07/20/23 07/19/23 05:36 07:07 WBC 12.0 H RBC 3.88 L Hgb 12.1 Hct 38.2 MCV 98.5 MCH 31.2 MCHC 31.7 L RDW 14.1 Plt Count 274 MPV 9.8 Immature Gran % (Auto) 0.3 Neut % (Auto) 73.6 H Lymph % (Auto) 17.8 L [place] % (Auto) 8.0 Eos % (Auto) 0.1 Baso % (Auto) 0.2 Lymph # (Auto) 2.13 [place] # (Auto) 1.0 H Eos # (Auto) 0.0 Baso # (Auto) 0.0 Abs Immat Gran (auto) 0.04 H Absolute Neuts (auto) 8.8 H Absolute Nucleated RBC 0.0 Nucleated RBC % 0.0 Sodium 139 Potassium 4.6 Chloride 104 Carbon Dioxide 26 Anion Gap 9 BUN 17 Creatinine 0.90 Estim Creat Clear Calc 55 Estimated GFR > 60 Glucose 123 H Calcium 8.6 Antibody Screen Negative Discharge Plan Discharge Patient Disposition: Home, Self-Care Discharge Instructions: See green instruction sheets Stand Alone Forms: General Discharge Instructions Follow-up/Referrals: Juanita Arambula PA [Physician Mend Worker] - Discharge Medications: New meloxicam 15 mg tablet 15 mg PO DAILY Qty: 30 0RF Rx Instructions: Cut in half. Take 1/2 in morning and 1/2 at night. Take with food. Stop if stomach upset. aspirin 81 mg tablet,delayed release (DR/EC) 81 mg PO BID 14 Days Qty: 28 0RF oxycodone-acetaminophen 5-325 mg tablet 1 - 2 tablet PO Q4-6H MDD 6 PRN (Reason: pain) Qty: 30 0RF Continued multivitamin [Daily Multiple] Tablet 1 tablet PO HS Calcium 600 + D(3) 600 mg calcium- 200 unit Capsule 1 cap PO QAM cetirizine [Zyrtec] 10 mg Tablet 10 mg PO DAILY PRN (Reason: Congestion) PreserVision AREDS 14,320-226-200 [id number] capsule 1 cap PO BID cholecalciferol (vitamin D3) 2,000 unit tablet 2,000 unit PO QAM aspirin [Adult Low Dose Aspirin] 81 mg tablet,delayed release (DR/EC) 81 mg PO HS docusate sodium [Stool Softener] 100 mg tablet 100 mg PO DAILY PRN (Reason: Constipation) rosuvastatin 10 mg tablet 10 mg PO HS Qty: 90 0RF Rx Instructions: 10 mg PO; solifenacin [Vesicare] 10 mg table
[2023-07-20] MEDS: ceFAZolin 2 GM/D5W 50 ML 2 GM/50 ML BAG IVPB (08:34)
[2023-07-20] MEDS: ACETAMINOPHEN 500 MG TABLET 1000 MG PO (08:35)
[2023-07-20] MEDS: MELOXICAM 7.5 MG TABLET PO (08:35)
[2023-07-20] MEDS: FAMOTIDINE 20 MG TABLET PO (08:35)
[2023-07-20] MEDS: ASPIRIN 81 MG ENTERIC TABLET PO (08:35)
[2023-07-20] MEDS: OPTI-GEN TAB 1 TABLET PO (08:35)
[2023-07-20] MEDS: SENNA/DOCUSATE SODIUM TABLET 2 TAB PO (08:35)
[2023-07-20] MEDS: polyethylene glycoL 3350 17 GM POWD.PACK PO (08:35)
[2023-07-20] MEDS: oxyCODONE HCL (*CRX) 5 MG TAB IR PO (08:38)
[2023-07-20] MEDS: CYCLOBENZAPRINE HCL 10 MG TABLET PO (08:38)
[2023-07-20 11:30] VITALS: BP 114/48; PULSE 76; RESP 18; TEMP 35.6; O2SAT 96
== END 2023-07-20 11:50 | disposition home or self-care (01) ==
LOC: ANHSURGERY 07:24 → ANH3MEDSUR 15:06
PROVIDERS: Physician Assistant Surgical; PCP Family Medicine; Visit Provider Orthopaedic Surgery
PROC: (CPT 27130; principal; 2023-07-19 07:30)
DX: M16.12 Unilateral primary osteoarthritis, left hip (principal); I10 Essential (primary) hypertension; E78.5 Hyperlipidemia, unspecified; K21.9 Gastro-esophageal reflux disease without esophagitis; G47.33 Obstructive sleep apnea (adult) (pediatric); N39.41 Urge incontinence; Z79.82 Long term (current) use of aspirin; Z87.891 Personal history of nicotine dependence; E66.9 Obesity, unspecified; Z68.36 Body mass index [BMI] 36.0-36.9, adult
CPT/HCPCS: 27130; 36415; 73502; 80048; 85025; 86850; 86900; 86901; 97110; 97161; 97165; 97530; 97535; 99215; A9270; C1776; G0463; J0171; J0330; J0690; J1100; J1170; J1200; J1885; J2250; J2270; J2371; J2405; J2704; J2795; J3010; J7120

== ENCOUNTER 2023-08-10 08:47 | Outpatient (CLI) | payer MEDICARE, SELFPAY ==
--- NOTE | ~2023-08-10 | XR_ITS ---
XR hip LT 2V w AP pelvis 08/10/2023 09:12 Indication: Joint replacement. Procedure: AP pelvis and 2 views left hip Comparison: 07/19/2023 Findings: There are bilateral total hip arthroplasties. No fracture or traumatic malalignment. Advanc ed lower lumbar spondylosis partially visualized. Pelvic rings intact. No fracture or traumatic malal ignment. Impression: 1: No acute bone or joint abnormality. Reviewed, dictated and finalized at location B. NFORMATICIST Impression: 1: No acute bone or joint abnormality.
== END 2023-08-10 08:48 | disposition home or self-care (01) ==
PROVIDERS: PCP Family Medicine; Visit Provider Orthopaedic Surgery
DX: Z47.1 Aftercare following joint replacement surgery (principal)
CPT/HCPCS: 73502

== ENCOUNTER 2024-01-16 15:19 | Outpatient (CLI) | payer MEDICARE, SELFPAY ==
--- NOTE | ~2024-01-16 | MM_ITS ---
EXAMINATION: MM screening leonarda BI w emelia HISTORY: Screening TECHNIQUE: Craniocaudal and mediolateral oblique 3-D tomosynthesis images were obtained and synthetic 2-D images were generated. CAD analysis was submitted and interpreted. COMPARISON: Comparison to multiple prior studies sequentially, with oldest reviewed study dated 10/06. BREAST PARENCHYMAL COMPOSITION: Not dense: There are scattered areas of fibroglandular density. FINDINGS: There is no evidence of suspicious mass, calcification, or architectural distortion to sugg est malignancy in either breast. There has been no suspicious interval change. IMPRESSION: 1. No mammographic evidence of malignancy. 2. Recommend routine screening mammography in one year. BI-RADS Category 1: Negative Reviewed, dictated and finalized at location B.
== END 2024-01-16 15:20 | disposition home or self-care (01) ==
LOC: ANHIMG 15:22
PROVIDERS: PCP Family Medicine; Visit Provider Family Medicine
DX: Z12.31 Encounter for screening mammogram for malignant neoplasm of breast (principal)
CPT/HCPCS: 77063; 77067

== ENCOUNTER 2024-02-18 09:24 | Outpatient (CLI) | payer MEDICARE, SELFPAY ==
[2024-02-18 09:41] LABS: Hematocrit 45.2 % (37.0-47.0); Hemoglobin 14.7 g/dL (12.0-15.0); Mean Corpuscular HGB Conc 32.5 g/dl (32-36); Mean Corpuscular Hemoglobin 32.3 pg (26-34); Mean Corpuscular Volume 99.3 fl (80-100); Mean Platelet Volume 9.4 fl (7.4-10.4); Platelet Count Result 301 k/mm3 (150-375); Red Blood Count 4.55 M/mm3 (4.2-5.4); Red Cell Distribution Width 14.4 % (11.5-14.5); White Blood Count 8.9 K/mm3 (4.5-10.0)
[2024-02-18 10:36] LABS: Vitamin D 25 Hydroxy 49.6 ng/mL
[2024-02-18 11:00] LABS: Alanine Aminotransferase 50 U/L (6-35); Albumin Level 4.5 g/dL (3.5-5.1); Alkaline Phosphatase 80 U/L (38-126); Anion Gap 9 mmol/L (4-12); Aspartate Amino Transferase 38 U/L (14-36); Bilirubin,Total 0.5 mg/dL (0.2-1.3); Blood Urea Nitrogen 18 mg/dL (7-17); Calcium 9.5 mg/dL (8.4-10.2); Carbon Dioxide 26 mmol/L (22-30); Chloride 107 mmol/L (98-107); Cholesterol 147 mg/dL (0-200); Estimated Glomerular Filt Rate 54; Glucose 129 mg/dL (65-110); HDL Direct 38 mg/dL; Potassium 4.2 mmol/L (3.4-5.0); Sodium 142 mmol/L (137-145); Triglycerides 293 mg/dL (<150)
[2024-02-18 11:12] LABS: LDL Cholesterol Direct 77 mg/dL
== END 2024-02-18 09:25 | disposition home or self-care (01) ==
PROVIDERS: PCP Family Medicine; Visit Provider Family Medicine
DX: E55.9 Vitamin D deficiency, unspecified (principal); E66.9 Obesity, unspecified; G47.31 Primary central sleep apnea; G47.33 Obstructive sleep apnea (adult) (pediatric); I10 Essential (primary) hypertension; R73.03 Prediabetes; Z79.899 Other long term (current) drug therapy; Z47.1 Aftercare following joint replacement surgery
CPT/HCPCS: 36415; 80053; 80061; 82306; 85027

== ENCOUNTER 2024-04-21 18:13 | Emergency (ER) | payer MEDICARE, SELFPAY ==
[2024-04-21 18:40] VITALS: BP 153/87; PULSE 94; RESP 16; TEMP 36.6; O2SAT 98
--- NOTE | 2024-04-21 18:41 | ED.FEMALEGU ---
HPI - Female Genitourinary General Chief complaint: Urogenital-Female Stated complaint: UTI SYMPTOMS Time Seen by Provider: 04/21/24 18:41 Source: patient, RN notes reviewed and old records reviewed Mode of arrival: ambulatory Limitations: no limitations History of Present Illness HPI Narrative: 78-year-old female presents to the [facility] with concerns for a UTI. Patient reports frequency, urgency and burning that started today. No treatment prior to arrival Denies fevers, CVA tenderness, abdominal pain, nausea or vomiting. Has a history of multiple UTIs Related Data Home Medications Medication Instructions Recorded Confirmed aspirin 81 mg tablet,delayed 81 mg PO HS 08/01/19 01/30/24 release (Adult Low Dose Aspirin) cholecalciferol (vitamin D3) 50 2,000 unit PO QAM 08/01/19 01/30/24 mcg (2,000 unit) tablet docusate sodium 100 mg tablet 100 mg PO DAILY PRN Constipation 08/01/19 01/30/24 (Stool Softener) vitamins A,C,F-qmbw-apgcio 4,296 1 cap PO BID 08/01/19 01/30/24 mcg-226 mg-90 mg capsule (PreserVision AREDS) calcium carbonate 600 mg-vitamin 1 cap PO QAM 09/11/19 01/30/24 D3 5 mcg (200 unit) capsule (Calcium 600 + D(3)) multivitamin (Daily Multiple 1 tablet PO HS 09/11/19 01/30/24 tablet) cetirizine 10 mg tablet (Zyrtec) 10 mg PO DAILY PRN Congestion 01/06/22 01/30/24 fluticasone furoate 50 inhalation 02/22/24 mcg/actuation blister powder for inhalation (Arnuity Ellipta) Allergies Allergy/AdvReac Type Severity Reaction Status Date / Time No Known Allergies Allergy Unknown Verified 04/21/24 18:29 Review of Systems Review of Systems: All systems reviewed & are unremarkable except as noted in HPI and below Constitutional: Constitutional: Reports no additional constitutional complaints Eyes: Eyes: Reports no additional eye complaints ENT: Reports system reviewed and no additional complaints, except as documented Cardiovascular: Cardiovascular: Reports no additional cardiovascular complaints, Denies chest pain and Denies dyspnea Respiratory: Respiratory: Reports no additional respiratory complaints, Denies chest congestion, Denies cough and Denies dyspnea Gastrointestinal: Gastrointestinal: Reports no additional gastrointestinal complaints, Denies abdominal pain, Denies nausea and Denies vomiting Genitourinary: Genitourinary: Reports as per HPI Musculoskeletal: Musculoskeletal: Reports no additional musculoskeletal complaints Integumentary/Breasts: Skin/Breast: Reports system reviewed and no additional complaints, except as docu Neurologic: Reports system reviewed and no additional complaints, except as documented Psychiatric: Psychiatric: Reports no additional psychiatric complaints Allergic/Immunologic: Allergic/Immunologic: Reports no additional allergic/immunologic complaints [facility] Past Medical History Medical History Arthritis COVID-19 Dyslipidemia Gastroesophageal reflux disease Hypertension Obstructive sleep apnea Urge incontinence Surgical History Surgical History History of arthroplasty of right shoulder History of carpal tunnel release History of tonsillectomy History of total right hip arthroplasty Family History Family History Mother Family history of dementia Father Family history of heart disease in male family member before age 55 Family history of cardiovascular disease, Onset Age: 68 Grandparent Diabetes mellitus Sibling Hypertension Patient's brother is in good health Social History Social History Social History: Surrogate decision maker: Laura Joyner, daughter. Code status: Full code. Smoking packs per day: 2 Smoking cigarettes per day: 40.0 Years smoked: 20 Smoking pack-years: 40.00 Smoking stat
[2024-04-21 18:42] VITALS: BP 153/87; PULSE 94; RESP 16; TEMP 36.6; O2SAT 98
[2024-04-21 18:42] LABS: EDUAAPPEAR Cloudy; EDUABILI Negative (Negative); EDUABLOOD 3+ (Negative); EDUACOLOR1 Pink; EDUAGLUCOSE Negative (Negative); EDUAKETONE Negative (Negative); EDUALEUKO 1+ (Negative); EDUANITRATE Negative (Negative); EDUAPH 5.5; EDUAPROTEIN 1+ (Negative); EDUAUROBILI 0.2
== END 2024-04-21 18:54 | disposition home or self-care (01) ==
PROVIDERS: Emergency Provider Nurse Practitioner; PCP Family Medicine
DX: N30.01 Acute cystitis with hematuria (principal); B96.20 Unspecified Escherichia coli [E. coli] as the cause of diseases classified elsewhere; Z87.891 Personal history of nicotine dependence; M19.90 Unspecified osteoarthritis, unspecified site; E78.5 Hyperlipidemia, unspecified; K21.9 Gastro-esophageal reflux disease without esophagitis; I10 Essential (primary) hypertension; Z96.641 Presence of right artificial hip joint; Z79.82 Long term (current) use of aspirin
CPT/HCPCS: 81003; 87077; 87086; 87088; 87186; 99213; G0463

== ENCOUNTER 2024-04-23 10:43 | Outpatient (CLI) | payer MEDICARE, SELFPAY ==
--- NOTE | ~2024-04-23 | DEXA_ITS ---
Bone Density Report Name: JOSHUA NEWBERRY Age: 78 Sex: Female Ethnicity: White Date of : 1945 Indication: postmenopausal; screening for osteoporosis; height loss; Referring Provider: SABRINA MONTES Study: Bone densitometry was performed. Exam Date: April 23, 2024 Accession number: [id number] Bone Density: Region BMD T-score Z-score Classification AP Spine(L1-L4) 1.211 1.5 4.0 Normal World Health Organization criteria for BMD impression classify patients as: Normal (T-score at or above -1.0), Osteopenia (T-score between -1.0 and -2.5), or Osteoporosis (T-score at or below -2.5). Previous Exams: Region Exam Age BMD T-score BMD Change BMD Change Date g/cm2 vs Baseline vs Previous AP Spine (L1-L4) 04/23/2024 78 1.211 1.5 0.194 (19.1%)# 0.166 (15.9%)# 11/25/2021 76 1.045 0.0 0.028 (2.7%)* 0.028 (2.7%)* 09/24/2014 69 1.017 -0.3 *Denotes significance at 95% confidence level, LSC for AP Spine = 0.022 g/cm2 # Denotes dissimilar scan types or analysis methods Clinical Information Provided by Patient: Has used the following medications: Vitamin D, Calcium Patient maximum height was 67.0 Menopause Age: 58 No regular weight bearing exercise Drinks caffeinated beverages Onset of menses at age 15 Number of children 1 Impression: The patient has normal bone mass. No significant bone loss was observed. Discussion: LOW RISK OF FRACTURE; BONE DENSITY IS WELL ABOVE THE MINIMUM DESIRABLE LEVEL AND ABOVE AVERAGE FOR AGE AND SEX AT ALL SKELETAL SITES TESTED. This person's bone density is above expected limits for age and sex. This is rarely clinically significant, but should be pursued if there are significant musculoskeletal complaints. The patient should follow a healthful lifestyle (good nutrition with adequate calcium and vitamin D, and appropriate weight-bearing exercise). Follow-Up: Consider repeating this study in 5 years or sooner if there is some new clinical indication. Reported by: DANIELLE on 04/23/2024 11:13:00 AM. Reviewed, dictated and finalized at location AJose BENIETS
== END 2024-04-23 10:44 | disposition home or self-care (01) ==
LOC: ANHIMG 10:46
PROVIDERS: PCP Family Medicine; Visit Provider Family Medicine
DX: Z78.0 Asymptomatic menopausal state (principal)
CPT/HCPCS: 77080

== ENCOUNTER 2024-08-23 10:09 | Outpatient (CLI) | payer MEDICARE, SELFPAY ==
[2024-08-23 10:44] LABS: Hematocrit 43.3 % (37.0-47.0); Hemoglobin 14.1 g/dL (12.0-15.0); Mean Corpuscular HGB Conc 32.6 g/dl (32-36); Mean Corpuscular Hemoglobin 32.6 pg (26-34); Mean Corpuscular Volume 100.2 fl (80-100); Mean Platelet Volume 9.4 fl (7.4-10.4); Platelet Count Result 300 k/mm3 (150-375); Red Blood Count 4.32 M/mm3 (4.2-5.4); Red Cell Distribution Width 15.2 % (11.5-14.5); White Blood Count 8.4 K/mm3 (4.5-10.0)
[2024-08-23 11:00] LABS: Alanine Aminotransferase 45 U/L (6-35); Albumin Level 4.2 g/dL (3.5-5.1); Alkaline Phosphatase 74 U/L (38-126); Anion Gap 5 mmol/L (4-12); Aspartate Amino Transferase 40 U/L (14-36); Bilirubin,Total 0.5 mg/dL (0.2-1.3); Blood Urea Nitrogen 12 mg/dL (7-17); Calcium 9.5 mg/dL (8.4-10.2); Carbon Dioxide 29 mmol/L (22-30); Chloride 103 mmol/L (98-107); Cholesterol 122 mg/dL (0-200); Estimated Glomerular Filt Rate > 60; Glucose 113 mg/dL (65-110); HDL Direct 32 mg/dL; Potassium 4.4 mmol/L (3.4-5.0); Sodium 137 mmol/L (137-145); Triglycerides 192 mg/dL (<150)
[2024-08-23 11:11] LABS: LDL Cholesterol Direct 50 mg/dL
[2024-08-23 11:27] LABS: Hemoglobin A1C 6.4 % (<5.7)
[2024-08-23 11:31] LABS: Vitamin D 25 Hydroxy 47.5 ng/mL
[2024-08-23 11:40] LABS: Hepatitis B Surface Antigen Negative (Negative)
[2024-08-23 11:46] LABS: HAV RESULT Negative (Negative); Hepatitis B Core IgM Result Negative (Negative)
[2024-08-23 11:57] LABS: Hepatitis C Virus Antibody Negative (Negative)
== END 2024-08-23 10:10 | disposition home or self-care (01) ==
LOC: ANHLAB 10:12
PROVIDERS: PCP Family Medicine; Visit Provider Family Medicine
DX: R73.01 Impaired fasting glucose (principal); Z79.899 Other long term (current) drug therapy; R73.03 Prediabetes; I10 Essential (primary) hypertension; G47.33 Obstructive sleep apnea (adult) (pediatric); E66.9 Obesity, unspecified; G56.00 Carpal tunnel syndrome, unspecified upper limb; E55.9 Vitamin D deficiency, unspecified; M15.0 Primary generalized (osteo)arthritis; R74.01 Elevation of levels of liver transaminase levels
CPT/HCPCS: 36415; 80053; 80061; 80074; 82306; 83036; 85027

== ENCOUNTER 2024-09-02 09:25 | Emergency (ER) | payer MEDICARE, SELFPAY ==
[2024-09-02 09:34] VITALS: BP 167/71; PULSE 81; RESP 16; TEMP 36.6; O2SAT 96
[2024-09-02 09:43] LABS: EDUAAPPEAR Cloudy; EDUABILI 1+ (Negative); EDUABLOOD 3+ (Negative); EDUACOLOR1 Orange; EDUAGLUCOSE Trace (Negative); EDUAKETONE Trace (Negative); EDUALEUKO 3+ (Negative); EDUANITRATE Positive (Negative); EDUAPROTEIN 3+ (Negative); EDUASPGRAVITY 1.025
--- NOTE | 2024-09-02 09:45 | ED_ITS ---
HPI - Female Genitourinary General Chief complaint: Urogenital-Female Stated complaint: Uti Symptoms Time Seen by Provider: 09/02/24 09:35 Source: patient and RN notes reviewed Mode of arrival: ambulatory Limitations: no limitations History of Present Illness HPI Narrative: Patient presents today complaining of urinary frequency, dysuria, and voiding small amounts since yesterday. Denies abdominal pain, back pain, fever, nausea or vomiting. She did take azo last night without relief. Related Data Home Medications ?Medication ?Instructions ?Recorded ?Confirmed ?Last Taken ?Type aspirin 81 mg tablet,delayed 81 mg PO HS 08/01/19 01/30/24 01/14/22 History release (Adult Low Dose Aspirin) cholecalciferol (vitamin D3) 50 2,000 unit PO QAM 08/01/19 01/30/24 01/14/22 History mcg (2,000 unit) tablet docusate sodium 100 mg tablet 100 mg PO DAILY PRN Constipation 08/01/19 01/30/24 01/14/22 History (Stool Softener) vitamins A,C,R-iicv-zqnmba 4,296 1 cap PO BID 08/01/19 01/30/24 01/14/22 History mcg-226 mg-90 mg capsule (PreserVision AREDS) calcium 600 mg (as 1 cap PO QAM 09/11/19 01/30/24 01/14/22 History carbonate)-vitamin D3 5 mcg (200 unit) capsule (Calcium 600 + D(3)) multivitamin (Daily Multiple 1 tablet PO HS 09/11/19 01/30/24 01/14/22 History tablet) cetirizine 10 mg tablet (Zyrtec) 10 mg PO DAILY PRN Congestion 01/06/22 01/30/24 01/14/22 History fluticasone furoate 50 inhalation 02/22/24 Unknown History mcg/actuation blister powder for inhalation (Arnuity Ellipta) Allergies Allergy/AdvReac Type Severity Reaction Status Date / Time No Known Allergies Allergy Unknown Verified 09/02/24 09:33 Review of Systems Review of Systems: CONSTITUTIONAL: Denies body aches, fever, chills, or sweats. EYES: Denies visual changes, redness, or discharge. ENT: Denies rhinorrhea, congestion, sore throat, or otalgia. CARDIOVASCULAR: Denies chest pain, palpitations, or edema. RESPIRATORY: Denies cough or dyspnea. GASTROINTESTINAL: Denies abdominal pain, nausea, vomiting, or diarrhea. GENITOURINARY: + dysuria, frequency. SKIN: Denies rash, itching, or wounds. MUSCULOSKELETAL: Denies back pain, joint pain, or myalgia. NEUROLOGIC: Denies headache, numbness, tingling, or weakness. PSYCH: Denies depression or anxiety. [facility] Past Medical History Medical History COVID-19 Hypertension Arthritis Obstructive sleep apnea Gastroesophageal reflux disease Dyslipidemia Urge incontinence Surgical History Surgical History History of arthroplasty of right shoulder History of carpal tunnel release History of total right hip arthroplasty History of tonsillectomy Family History Family History Mother Family history of dementia Father Family history of heart disease in male family member before age 55 Family history of cardiovascular disease, Onset Age: 68 Grandparent Diabetes mellitus Sibling Hypertension Patient's brother is in good health Social History Social History Social History: Surrogate decision maker: Laura Joyner, daughter. Code status: Full code. Smoking packs per day: 2 Smoking cigarettes per day: 40.0 Years smoked: 20 Smoking pack-years: 40.00 Smoking status: Former smoker Tobacco type: cigarettes Second hand tobacco smoke exposure: No Smoking end date: 08/15/84 Additional smoking assessment comments: PT DENIES ALL FORMS OF TOBACCO USE Alcohol intake: never Drinks per week: 0 Alcohol use details: 1/MONTH IF THAT Substance use: never Substance use type: does not use Do You Feel Safe in your Home?: Yes Lack of Transportation: YES Lack of Food: Never True Current Housing: I Have Housing Concerned About Future Housing: YES Difficulty Paying Gas/Electric Bills: YES Difficulty Paying for Meds: YES Currently Unemployed: YES Education: Decline to Answer Difficulty w/ Childcare or Family Care: No Living arrangements: alone Additional living arrangements comments: . Occupation/Education: retired Spiritual care concerns: No Comments At time of signature, I have reviewed and agree with nursing past medical, surgical, social and family history unless otherwise noted. Please see nursing chart for further information. There is no relevant family history pertinent to the presenting complaint Exam Narrative: GENERAL: Well-appearing, well-nourished, and in no acute distress. HEAD: Normocephalic, atraumatic. EYES: EOMI. No redness or drainage. Conjunctivae normal. ENT: Mucous membranes pink and moist. NECK: Normal AROM. CHEST: No respiratory distress. Clear to auscultation. HEART: Regular rate and rhythm. No murmur appreciated. Normal peripheral pulses. ABDOMEN: Soft, nontender, nondistended, normal active bowel sounds. EXTREMITIES: Normal range of motion. No edema. SKIN: Warm, dry, no rash. Capillary refill normal. Normal skin turgor. NEURO: No focal deficits. Alert and oriented x3. Gait steady. PSYCH: Normal affect. No signs of depression or anxiety. Course Course Level of Care: Express Care Visit Vital Signs Vital signs: Vital Signs Temperature 97.8 F 09/02/24 09:34 Pulse Rate 81 09/02/24 09:34 Respiratory Rate 16 09/02/24 09:34 Blood Pressure 167/71 H 09/02/24 09:34 Pulse Oximetry 96 09/02/24 09:34 Temperature 97.8 F 09/02/24 09:34 Pulse Rate 81 09/02/24 09:34 Respiratory Rate 16 09/02/24 09:34 Blood Pressure 167/71 H 09/02/24 09:34 Pulse Oximetry 96 09/02/24 09:34 Reviewed MDM - Female Genitourinary MDM Narrative Medical decision making narrative: Patient's urinalysis is skewed due to Azo use last night. She will be started on a course of Keflex due to her HPI. Culture pending. Anticipatory guidance and ED precautions given. Differential Diagnosis Differential diagnosis: Likely urinary tract infection, vaginitis, cystitis and other (Pyelonephritis) Lab Data Attestation: I reviewed the patient's lab results. Labs: Lab Results 09/02/24 Range/Units 09:40 POC Urine Color [place] POC Urine Clarity Cloudy POC Urine pH 6.0 POC Ur Specif [place] 1.025 POC Urine Protein 3+ (Negative) POC Ur Glucose (UA) Trace (Negative) POC Urine Ketones Trace (Negative) POC Urine Blood 3+ (Negative) POC Urine Nitrite Positive (Negative) POC Urine Bilirubin 1+ (Negative) POC Urine Urobilinogen 2.0 POC U Leukocyte [place] 3+ (Negative) Critical Care Time Critical Care Time Critical Care Time: No Discharge Plan Discharge Clinical Impression: UTI symptoms Patient Disposition: Home, Self-Care Condition: Stable Instructions: Antibiotic Form, Urinary Tract Infection in Women (ED) Additional Instructions: Please start the Keflex and take as directed. Your urine will be sent to the hospital laboratory for urine culture and you will be notified by telephone if your antibiotics need to be changed based on those results. Drink plenty of water. Take azo if needed. Follow-up with your PCP with any concerns. If symptoms worsen to include severe abdominal or back pain, fever, nausea or vomiting, sweats or chills, please go to the ER immediately for further evaluation and treatment. Your blood pressure was elevated above 120/80 today at Urgent Care. This puts you above the threshold for follow up. Please schedule a followup visit with your personal physician as soon as possible, for further evaluation and treatment. Even blood pressure exceeding 120/80 may indicate pre-hypertension. Patient Language: Korean Prescriptions: New cephalexin 500 mg capsule 500 mg PO Q6H 7 Days Qty: 28 0RF No Action tirzepatide 2.5 mg/0.5 mL pen injector 2.5 mg subcut WEEKLY Qty: 2 0RF Rx Instructions: for 4 weeks Arnuity Ellipta 50 mcg/actuation blister with device inhalation multivitamin [Daily Multiple] Tablet 1 tablet PO HS Calcium 600 + D(3) 600 mg calcium- 200 unit Capsule 1 cap PO QAM cetirizine [Zyrtec] 10 mg Tablet 10 mg PO DAILY PRN (Reason: Congestion) PreserVision AREDS 14,320-226-200 ifpl-[id number]-lmaj capsule 1 cap PO BID cholecalciferol (vitamin D3) 2,000 unit tablet 2,000 unit PO QAM aspirin [Adult Low Dose Aspirin] 81 mg tablet,delayed release (DR/EC) 81 mg PO HS docusate sodium [Stool Softener] 100 mg tablet 100 mg PO DAILY PRN (Reason: Constipation) solifenacin [Vesicare] 10 mg tablet 10 mg PO HS Qty: 90 1RF Rx Instructions: TAKE 1 TABLET DAILY rosuvastatin 10 mg tablet See Rx Instructions .ROUTE .COMPLEX Qty: 90 0RF Dose Instruction: TAKE 1 TABLET AT BEDTIME Rx Instructions: TAKE 1 TABLET AT BEDTIME Zepbound 2.5 mg/0.5 mL pen injector 2.5 mg subcut WEEKLY Qty: 2 0RF Rx Instructions: for 4 weeks Follow-up/Referrals: Sid Ramsey MD [Physician] - Time of Disposition: 09:50
== END 2024-09-02 09:56 | disposition home or self-care (01) ==
PROVIDERS: Emergency Provider Nurse Practitioner; PCP Family Medicine
DX: R35.0 Frequency of micturition (principal); R30.0 Dysuria; Z87.891 Personal history of nicotine dependence; I10 Essential (primary) hypertension; M19.90 Unspecified osteoarthritis, unspecified site; K21.9 Gastro-esophageal reflux disease without esophagitis; E78.5 Hyperlipidemia, unspecified; Z79.82 Long term (current) use of aspirin; Z96.641 Presence of right artificial hip joint; Z96.611 Presence of right artificial shoulder joint
CPT/HCPCS: 81003; 87086; 87186; 99213; G0463

== ENCOUNTER 2024-10-15 15:30 | Outpatient (RCR) | payer MEDICARE, SELFPAY ==
--- NOTE | 2024-09-17 12:12 | OPREHPOC ---
Outpatient Therapy Plan of Care This is a Multidisciplinary Plan of Care that may contain components documented by all disciplines (PT, OT, and ST.) PT Problem 1 PT Problem #1 Knowledge Deficit PT Goal 1 Goal / Goal Update [place] with HEP Target Visit 4 PT Goal 2 Goal / Goal Update Report no pain greater than 2/10 consistently for 2 weeks Target Visit 8 PT Problem 2 PT Problem #2 Impaired Strength PT Goal 1 Goal / Goal Update 1. Improve bi hip abduction strength to 4/5 to improve lateral stability with ADLs 2. Improve R hip flexion strength to 4+/5 to improve hip stability and foot clearance Target Visit 8 PT Problem 3 PT Problem #3 Impaired Gait PT Goal 1 Goal / Goal Update Demonstrate even stride length bilaterally with gait lacking Trendelenburg presentation Target Visit 8
--- NOTE | 2024-09-17 12:12 | PTOPEVAL1 ---
Assessment and note entered by Jacobo Aguayo, PT Evaluation Information Assessment Status Evaluation Diagnosis M53.3, Onset February 2024 Subjective Information Reports that she is having most of her pain when rising to stand after sitting for a while. She has to take time between transfers and is unable to walk moderate distances without increased pain. No problems with sleeping at night at this time. A little bit of trouble on stairs. Reports that she is planning to move to [place] this summer. Reported Pain Level Pain Score 0: Self Report Assessment PT Clinical Summary Patient presents with signs and symptoms consistent with lumbar stenosis with sciatic type radiculopathy. She has notable lateral hip and core weakness. Patient will benefit from skilled therapy to address these deficits for trunk stabilization and hip strengthening for care home functional improvement. Plan of Care Interventions Gait Training,Manual Therapy,Neuro Re-education, Therapeutic Activities,Therapeutic Exercise PT Services Indicated Yes Treatment Frequency and 2x/week for 8 visits Duration These treatments will address the objective and functional deficits as defined above. The patient will be advanced safely and appropriately in order for the patient to progress towards his/her prior level of function. Additional exercises will be introduced and as well as a comprehensive home exercise program upon discharge, if needed, ?to ensure carryover of functional gains achieved in the clinic. This treatment plan has been reviewed and agreement upon by the patient.
--- NOTE | 2024-10-15 16:13 | PTOPDC ---
Assessment and note entered by Halle Antunez, PT Assessment Status Discharge Diagnosis M53.3, Onset February 2024 Subjective Information overall better, can get up and walk without stopping before can walk; doing the exercises and stretching at home; had dental surgery and had a few days that has been hurting too much to do her exercises. Reported Pain Level Pain Score Self Report Additional Pain Score Comments pain range in the past week 0-3/10; increase pain: with more activity no pain with sit to stand transfer Assessment PT Clinical Summary Saba has received 8 PT sessions. Compared to the initial evaluation: pain from 0-7/ 10 to 0-3/10; does not have pain with sit to stand transfer; increase strength of trunk and hips; gait pattern with improved stability over hips and trunk. Education completed for HEP and posture/body mechanics. The goals were met, except pain rating at worst of 2/10. Discharge PT. She is to continue with her HEP and monitor her posture and body mechanics. Discharge PT services. Plan of Care PT Services Indicated No
== END 2024-10-15 16:58 | disposition home or self-care (01) ==
LOC: ANHPT 15:30
PROVIDERS: PCP Family Medicine; Visit Provider Family Medicine
DX: M53.3 Sacrococcygeal disorders, not elsewhere classified (principal); G89.29 Other chronic pain; M47.816 Spondylosis without myelopathy or radiculopathy, lumbar region
CPT/HCPCS: 97110; 97161; 97530

== ENCOUNTER 2024-11-07 10:00 | Emergency (ER) | payer MEDICARE, SELFPAY ==
[2024-11-07 10:11] VITALS: BP 139/75; PULSE 78; RESP 16; TEMP 36.7; O2SAT 96
--- NOTE | 2024-11-07 10:34 | ED_ITS ---
HPI - Female Genitourinary General Chief complaint: Urogenital-Female Stated complaint: UTI SYMPTOMS Time Seen by Provider: 11/07/24 10:25 Source: patient, RN notes reviewed and old records reviewed (Urine culture) Mode of arrival: ambulatory Limitations: no limitations History of Present Illness HPI Narrative: Patient presents today complaining of dysuria and urinary frequency since last night. Denies any additional symptoms to include fever, sweats, chills, vomiting. She has taken no xavc-afl-lrrspez medication for symptoms prior to arrival. Patient was treated with Keflex for UTI here at [facility] in August. She was also treated with Keflex for dental infection 1 month ago. Related Data Home Medications ?Medication ?Instructions ?Recorded ?Confirmed ?Last Taken ?Type aspirin 81 mg tablet,delayed 81 mg PO HS 08/01/19 01/30/24 01/14/22 History release (Adult Low Dose Aspirin) cholecalciferol (vitamin D3) 50 2,000 unit PO QAM 08/01/19 01/30/24 01/14/22 History mcg (2,000 unit) tablet docusate sodium 100 mg tablet 100 mg PO DAILY PRN Constipation 08/01/19 01/30/24 01/14/22 History (Stool Softener) vitamins A,C,W-ajjb-urrnrb 4,296 1 cap PO BID 08/01/19 01/30/24 01/14/22 History mcg-226 mg-90 mg capsule (PreserVision AREDS) calcium 600 mg (as 1 cap PO QAM 09/11/19 01/30/24 01/14/22 History carbonate)-vitamin D3 5 mcg (200 unit) capsule (Calcium 600 + D(3)) multivitamin (Daily Multiple 1 tablet PO HS 09/11/19 01/30/24 01/14/22 History tablet) cetirizine 10 mg tablet (Zyrtec) 10 mg PO DAILY PRN Congestion 01/06/22 01/30/24 01/14/22 History fluticasone furoate 50 inhalation 02/22/24 Unknown History mcg/actuation blister powder for inhalation (Arnuity Ellipta) Allergies Allergy/AdvReac Type Severity Reaction Status Date / Time No Known Allergies Allergy Unknown Verified 11/07/24 10:10 Review of Systems Review of Systems: CONSTITUTIONAL: Denies body aches, fever, chills, or sweats. EYES: Denies visual changes, redness, or discharge. ENT: Denies rhinorrhea, congestion, sore throat, or otalgia. CARDIOVASCULAR: Denies chest pain, palpitations, or edema. RESPIRATORY: Denies cough or dyspnea. GASTROINTESTINAL: Denies abdominal pain, nausea, vomiting, or diarrhea. GENITOURINARY: + dysuria, frequency SKIN: Denies rash, itching, or wounds. MUSCULOSKELETAL: Denies back pain, joint pain, or myalgia. NEUROLOGIC: Denies headache, numbness, tingling, or weakness. PSYCH: Denies depression or anxiety. [facility] Past Medical History Medical History COVID-19 Hypertension Arthritis Obstructive sleep apnea Gastroesophageal reflux disease Dyslipidemia Urge incontinence Surgical History Surgical History History of arthroplasty of right shoulder History of carpal tunnel release History of total right hip arthroplasty History of tonsillectomy Family History Family History Mother Family history of dementia Father Family history of heart disease in male family member before age 55 Family history of cardiovascular disease, Onset Age: 68 Grandparent Diabetes mellitus Sibling Hypertension Patient's brother is in good health Social History Social History Social History: Surrogate decision maker: Laura Joyner, daughter. Code status: Full code. Smoking packs per day: 2 Smoking cigarettes per day: 40.0 Years smoked: 20 Smoking pack-years: 40.00 Smoking status: Former smoker Tobacco type: cigarettes Second hand tobacco smoke exposure: No Smoking end date: 08/15/84 Additional smoking assessment comments: PT DENIES ALL FORMS OF TOBACCO USE Alcohol intake: never Drinks per week: 0 Alcohol use details: 1/MONTH IF THAT Substance use: never Substance use type: does not use Do You Feel Safe in your Home?: Yes Lack of Transportation: YES Lack of Food: Never True Current Housing: I Have Housing Concerned About Future Housing: YES Difficulty Paying Gas/Electric Bills: YES Difficulty Paying for Meds: YES Currently Unemployed: YES Education: Decline to Answer Difficulty w/ Childcare or Family Care: No Living arrangements: alone Additional living arrangements comments: . Occupation/Education: retired Spiritual care concerns: No Comments At time of signature, I have reviewed and agree with nursing past medical, surgical, social and family history unless otherwise noted. Please see nursing chart for further information. There is no relevant family history pertinent to the presenting complaint Exam Narrative: GENERAL: Well-appearing, well-nourished, and in no acute distress. HEAD: Normocephalic, atraumatic. EYES: EOMI. No redness or drainage. Conjunctivae normal. ENT: Mucous membranes pink and moist. NECK: Normal AROM. CHEST: No respiratory distress. Clear to auscultation. HEART: Regular rate and rhythm. No murmur appreciated. ABDOMEN: Soft, nontender, nondistended, normal active bowel sounds. -CVAT EXTREMITIES: Normal range of motion. No edema. SKIN: Warm, dry, no rash. Capillary refill normal. Normal skin turgor. NEURO: No focal deficits. Alert and oriented x3. Gait steady. PSYCH: Normal affect. No signs of depression or anxiety. Course Course Level of Care: Express Care Visit Vital Signs Vital signs: Vital Signs Temperature 98.1 F 11/07/24 10:11 Pulse Rate 78 11/07/24 10:11 Respiratory Rate 16 11/07/24 10:11 Blood Pressure 139/75 11/07/24 10:11 Pulse Oximetry 96 11/07/24 10:11 Temperature 98.1 F 11/07/24 10:11 Pulse Rate 78 11/07/24 10:11 Respiratory Rate 16 11/07/24 10:11 Blood Pressure 139/75 11/07/24 10:11 Pulse Oximetry 96 11/07/24 10:11 Reviewed MDM - Female Genitourinary MDM Narrative Medical decision making narrative: Urinalysis is consistent with infection. Patient will be placed on a course of Augmentin. Culture pending. Anticipatory guidance given. ED precautions given. Differential Diagnosis Differential diagnosis: Likely urinary tract infection, vaginitis, cystitis and other (Pyelonephritis) Lab Data Attestation: I reviewed the patient's lab results. Critical Care Time Critical Care Time Critical Care Time: No Discharge Plan Discharge Clinical Impression: UTI (urinary tract infection) Qualifiers: Urinary tract infection type: acute cystitis Hematuria presence: with hematuria Qualified Code(s): N30.01 - Acute cystitis with hematuria Patient Disposition: Home, Self-Care Condition: Stable Instructions: Antibiotic Form, Urinary Tract Infection in Older Adults (ED) Additional Instructions: Your urine shows infection today. Take Augmentin as prescribed until gone. Your urine will be sent of for a culture to identify what type of bacteria is causing your infection. If the culture shows that your medication will not get rid of your infection, you will be notified and a new antibiotic will be called in for you. If your symptoms worsen to include fever, sweats, chills, nausea, vomiting, severe abdominal or back pain, please go to the ER for further evaluation. Your blood pressure was elevated above 120/80 today at Urgent Care. This puts you above the threshold for follow up. Please schedule a followup visit with your personal physician as soon as possible, for further evaluation and treatme nt. Even blood pressure exceeding 120/80 may indicate pre-hypertension. Patient Language: Malagasy Prescriptions: New amoxicillin-pot clavulanate 875-125 mg tablet 1 tablet PO Q12H 7 Days Qty: 14 0RF No Action tirzepatide 2.5 mg/0.5 mL pen injector 2.5 mg subcut WEEKLY Qty: 2 0RF Rx Instructions: for 4 weeks Arnuity Ellipta 50 mcg/actuation blister with device inhalation multivitamin [Daily Multiple] Tablet 1 tablet PO HS Calcium 600 + D(3) 600 mg calcium- 200 unit Capsule 1 cap PO QAM cetirizine [Zyrtec] 10 mg Tablet 10 mg PO DAILY PRN (Reason: Congestion) PreserVision AREDS 14,[id number] zumr-fw-uipj capsule 1 cap PO BID cholecalciferol (vitamin D3) 2,000 unit tablet 2,000 unit PO QAM aspirin [Adult Low Dose Aspirin] 81 mg tablet,delayed release (DR/EC) 81 mg PO HS docusate sodium [Stool Softener] 100 mg tablet 100 mg PO DAILY PRN (Reason: Constipation) solifenacin [Vesicare] 10 mg tablet 10 mg PO HS Qty: 90 1RF Rx Instructions: TAKE 1 TABLET DAILY rosuvastatin 10 mg tablet See Rx Instructions .ROUTE .COMPLEX Qty: 90 0RF Dose Instruction: TAKE 1 TABLET AT BEDTIME Rx Instructions: TAKE 1 TABLET AT BEDTIME Zepbound 2.5 mg/0.5 mL pen injector 2.5 mg subcut WEEKLY Qty: 2 0RF Rx Instructions: for 4 weeks Follow-up/Referrals: Sid Ramsey MD [Primary Care Provider] - Time of Disposition: 10:43
[2024-11-07 10:42] LABS: EDUAAPPEAR Cloudy; EDUABILI Negative (Negative); EDUABLOOD 3+ (Negative); EDUACOLOR1 Yellow; EDUAGLUCOSE Negative (Negative); EDUAKETONE Negative (Negative); EDUALEUKO 2+ (Negative); EDUANITRATE Negative (Negative); EDUAPROTEIN 3+ (Negative); EDUASPGRAVITY 1.025; EDUAUROBILI 0.2
== END 2024-11-07 10:48 | disposition home or self-care (01) ==
PROVIDERS: Emergency Provider Nurse Practitioner; PCP Family Medicine
DX: N30.01 Acute cystitis with hematuria (principal); B96.20 Unspecified Escherichia coli [E. coli] as the cause of diseases classified elsewhere; Z87.891 Personal history of nicotine dependence; I10 Essential (primary) hypertension; M19.90 Unspecified osteoarthritis, unspecified site; K21.9 Gastro-esophageal reflux disease without esophagitis; E78.5 Hyperlipidemia, unspecified; Z86.16 Personal history of COVID-19; Z96.641 Presence of right artificial hip joint; Z96.611 Presence of right artificial shoulder joint
CPT/HCPCS: 81003; 87077; 87086; 87186; 99213; G0463

== ENCOUNTER 2025-01-24 08:31 | Outpatient (CLI) | payer MEDICARE, SELFPAY ==
--- NOTE | ~2025-01-24 | MM_ITS ---
EXAMINATION: MM screening leonarda BI w emelia HISTORY: Screening TECHNIQUE: Craniocaudal and mediolateral oblique 3-D tomosynthesis images were obtained and synthetic 2-D images were generated. CAD analysis was submitted and interpreted. COMPARISON: Comparison to multiple prior studies sequentially, with oldest reviewed study dated 10/07. BREAST PARENCHYMAL COMPOSITION: Not Dense: The breasts are almost entirely fatty. FINDINGS: There is no evidence of suspicious mass, calcification, or architectural distortion to sugg est malignancy in either breast. There has been no suspicious interval change. IMPRESSION: 1. No mammographic evidence of malignancy. 2. Recommend routine screening mammography in one year. BI-RADS Category 1: Negative Reviewed, dictated and finalized at location B.
== END 2025-01-24 08:32 | disposition home or self-care (01) ==
LOC: ANHIMG 08:33
PROVIDERS: PCP Family Medicine; Visit Provider Family Medicine
DX: Z12.31 Encounter for screening mammogram for malignant neoplasm of breast (principal)
CPT/HCPCS: 77063; 77067

== ENCOUNTER 2025-01-30 09:16 | Outpatient (CLI) | payer MEDICARE, SELFPAY ==
[2025-01-30 09:54] LABS: Hematocrit 44.1 % (37.0-47.0); Hemoglobin 14.4 g/dL (12.0-15.0); Mean Corpuscular HGB Conc 32.7 g/dl (32-36); Mean Corpuscular Hemoglobin 31.6 pg (26-34); Mean Corpuscular Volume 96.9 fl (80-100); Mean Platelet Volume 9.3 fl (7.4-10.4); Platelet Count Result 324 k/mm3 (150-375); Red Blood Count 4.55 M/mm3 (4.2-5.4); Red Cell Distribution Width 14.7 % (11.5-14.5); White Blood Count 7.4 K/mm3 (4.5-10.0)
[2025-01-30 10:09] LABS: Alanine Aminotransferase 35 U/L (6-35); Albumin Level 4.3 g/dL (3.5-5.1); Alkaline Phosphatase 71 U/L (38-126); Anion Gap 10 mmol/L (4-12); Aspartate Amino Transferase 34 U/L (14-36); Bilirubin,Total 0.4 mg/dL (0.2-1.3); Blood Urea Nitrogen 12 mg/dL (7-17); Calcium 9.5 mg/dL (8.4-10.2); Carbon Dioxide 25 mmol/L (22-30); Chloride 107 mmol/L (98-107); Estimated Glomerular Filt Rate > 60; Glucose 121 mg/dL (65-110); Hemoglobin A1C 6.2 % (<5.7); Potassium 4.2 mmol/L (3.4-5.0); Sodium 142 mmol/L (137-145); Total Protein 7.4 g/dL (6.3-8.2)
== END 2025-01-30 09:17 | disposition home or self-care (01) ==
LOC: ANHLAB 09:17
PROVIDERS: PCP Family Medicine; Visit Provider Family Medicine
DX: E66.9 Obesity, unspecified (principal); Z79.899 Other long term (current) drug therapy; I25.10 Atherosclerotic heart disease of native coronary artery without angina pectoris; I10 Essential (primary) hypertension; E78.5 Hyperlipidemia, unspecified; R73.03 Prediabetes
CPT/HCPCS: 36415; 80053; 83036; 85027